=== PATIENT | female | born 1950 | race Caucasian/White ===

== ENCOUNTER 2017-04-26 11:40 | Inpatient (IN) ==
[2017-04-26] MEDS ORDERED: Ipratropium/Albuterol Neb 3 ML IH ONE (11:58)
[2017-04-26] MEDS ORDERED: methylPREDNISolone 125 MG/2 ML VIAL IVP ONE (11:58)
--- NOTE | 2017-04-26 12:40 | Emergency Department Note ---
Disposition Clinical Impression: COPD exacerbation Chest pain Qualifiers: Chest pain type: unspecified Qualified Code(s): R07.9 - Chest pain, unspecified Disposition: Admitted As Inpatient Condition: Good Chest Pain HPI - General Chief Complaint: ED Chest Pain Stated Complaint: Chest pain Time Seen by Provider: 04/26/17 11:48 Source: patient Mode of arrival: private vehicle Limitations: no limitations Vital Signs Reviewed: Yes Nursing Notes Reviewed: Yes - History of Present Illness HPI Narrative: 67-year-old female history of COPD on continuous oxygen supplementation at 2-1/ 2 L who presents to the ER with a chief complaint of shortness of breath and chest pain. Patient states she has had intermittent symptoms for the last 3 days. States she has a sharp pain sometimes on her right and sometimes on her left without radiation. States that it will happen a couple times a day. She reports she has had a cough during this time. She was recently hospitalized 1 month ago for complications from her COPD. Reports she was on steroids and antibiotics in the hospital. Denies any prior history of cardiac disease. No other complaints. Pt complaint: chest pain, other (Dyspnea) Onset (ago): day(s) Duration: intermittent Onset: during rest Pain Location: substernal Severity: severe Severity scale (1-10): 9 Quality: sharp Pain Radiation: none Improves with: nothing Worsens with: nothing Treatments prior to arrival chest pain: none - Related Data On Oral Contraceptives: No Home Medications Medication Instructions Recorded Confirmed Aspirin Enteric Coated [Aspirin EC] 81 mg PO DAILY 12/22/14 04/26/17 Cholecalciferol (Vitamin D3) 1,000 unit PO DAILY 12/22/14 04/26/17 [Vitamin D] ALPRAZolam [Xanax 0.5 MG Tablet] 0.5 mg PO BID 04/05/17 04/26/17 Albuterol Sulfate [Albuterol 1 - 2 puff IH QID PRN 04/26/17 04/26/17 Inhaler] Multivitamin [One Daily Essential] 1 tab PO DAILY 04/26/17 04/26/17 Previous Rx's Medication Instructions Recorded Hydrocodone/Acetaminophen [[place] 1 tab PO Q6H PRN #4 tab 12/22/14 5-325 Tablet] Allergies Allergy/AdvReac Type Severity Reaction Status Date / Time No Known Allergies Allergy Verified 04/26/17 11:45 All systems ED: reviewed and negative except as stated. Constitutional: Denies: fever Cardiovascular: Reports: chest pain Respiratory: Reports: cough, dyspnea Gastrointestinal: Reports: abdominal pain (Suprapubic), nausea. Denies: vomiting, diarrhea Genitourinary: Denies: dysuria, hematuria Chest Pain PMH - Past Medical History Medical history: Reports: COPD Surgical history: Reports: no surgical history, , hysterectomy Psychiatric history: Reports: no psych history - Social History Smoking Status: Current every day smoker Alcohol use: Reports: none Drug use: Reports: none Physical Exam - General Limitations: no limitations General appearance: alert, in no apparent distress - Head Head exam: atraumatic, normocephalic - Eye Eye exam: Present: normal appearance - ENT ENT exam: normal exam - Neck Neck exam: Present: normal inspection - Chest Chest inspection: Present: normal inspection, symmetric chest wall rise - Respiratory Respiratory exam: Present: other (Course breath sounds bilaterally) - Cardiovascular Cardiovascular exam: Present: regular rate, normal rhythm, normal heart sounds - Abdominal Exam Abdominal exam: Present: soft, Non-Tender. Absent: tenderness - Extremities Exam Extremities exam: Present: normal inspection, full ROM - Expanded Upper Extremity Exam Shoulder exam: Present: normal inspection, full ROM Arm exam: Present: normal inspection, full ROM Elbow exam: Present: normal inspection, full ROM Forearm/Wrist exam: Present: normal inspection, full ROM Hand exam: Present: normal inspection, full ROM - Expanded Lower Extremity Exam Hip/Pelvis exam: Present: normal inspection, full ROM Upper leg exam: Present: normal inspection, full ROM Knee exam: Present: normal inspection, full ROM Lower leg exam: Present: normal inspection, full ROM Ankle exam: Present: normal inspection, full ROM Foot/toe exam: Present: normal inspection, full ROM - Skin Skin exam: Present: warm, dry, intact Course Course Narrative: Patient seen and examined. Vital signs reviewed. We will obtain EKG, chest x- ray as well as labs including troponin. Patient given a breathing treatment and steroids here. - Reevaluation(s) Reevaluation #1: Discussed results of imaging and labs with the patient. She is agreeable with being admitted. Vital Signs Temperature 98.0 F 04/26/17 11:42 Pulse Rate 79 04/26/17 11:42 Respiratory Rate 20 04/26/17 11:42 Blood Pressure 121/78 04/26/17 11:42 O2 Sat by Pulse Oximetry 96 04/26/17 11:42 Temperature 98.0 F 04/26/17 11:42 Pulse Rate 57 04/26/17 15:54 Respiratory Rate 16 04/26/17 16:54 Blood Pressure 116/68 04/26/17 16:54 O2 Sat by Pulse Oximetry 96 04/26/17 15:54 Oxygen Delivery Oxygen Delivery Nasal Cannula Chest Pain - MDM Narrative Medical decision making narrative: 67-year-old female presents to the ER due to shortness of breath and chest pain for 3 days. She is cachectic in appearance here. Slight increase in her by her oxygen supplementation requirement. EKG without ischemic findings. Chest x -ray unremarkable. Labs reviewed. Patient given DuoNeb and steroids as well as Levaquin and admitted for COPD exacerbation as well as chest pain. - Lab Data Lab results reviewed: Yes I reviewed the patient's lab results. Result diagrams: 04/26/17 13:08 04/26/17 13:08 Lab Results 04/26/17 04/26/17 04/26/17 Range/Units 13:00 13:08 13:08 WBC 3.3 L (4.3-11.1) K/mcL RBC 5.11 H (3.82-4.97) M/mcL Hgb 16.4 H (11.5-15.4) g/dL Hct 48.3 H (35.3-44.9) % MCV 94.5 (83.0-100.0) fL MCH 32.1 (28.0-33.3) pg MCHC 34.0 (31.6-35.5) g/dL RDW 12.4 (11.5-14.5) % Plt Count 147 (140-400) K/mcL MPV 11.0 (9.4-12.4) fL Immature Gran % 0.3 (0-4) % Seg Neutrophils % 69.1 % Lymphocytes % 21.6 % Monocytes % 8.7 % Eosinophils % 0.0 % Basophils % 0.3 % Neutrophils # 2.3 (1.6-8.9) K/mcL Lymphocytes # 0.7 (0.6-4.6) K/mcL Monocytes # 0.3 (0.0-1.3) K/mcL Eosinophils # 0.0 (0.0-0.6) K/mcL Basophils # 0.0 (0.0-0.2) K/mcL Sodium (136-145) mEq/L Potassium (3.5-5.1) mEq/L Chloride (98-107) mEq/L Carbon Dioxide (23-29) mEq/L BUN (8-23) mg/dL Creatinine (0.60-1.20) mg/dL Est GFR ( Amer) (> 60) Est GFR (Non-Af Amer) (> 60) BUN/Creatinine Ratio (6-26) Glucose (70-105) mg/dL Calculated Osmolality (280-300) Calcium (8.6-10.3) mg/dL Total Bilirubin (0.3-1.0) mg/dL Direct Bilirubin (0.0-0.2) mg/dL Indirect Bilirubin (0.0-1.2) mg/dL AST (13-39) Units/L ALT (7-52) Units/L Alkaline Phosphatase (34-104) Units/L Troponin I (< 0.04) ng/mL B-Natriuretic Peptide 22 (Less than 100) pg/mL Serum Total Protein (6.4-8.9) g/dL Albumin (3.5-5.7) g/dL Globulin (2.4-3.5) g/dL Albumin/Globulin Ratio (1.1-2.2) Urine Color Dark Yellow (Yellow) Urine Clarity Cloudy A (Clear) Urine pH 5.5 (5.0-8.0) pH Units Ur Specific [place] > 1.030 H (1.010-1.025) Urine Protein 30 H (Neg-Trace) mg/dL Urine Glucose (UA) Normal (Normal) mg/dL Urine Ketones Trace H (Negative) mg/dL Urine Blood Negative (Negative) Urine Nitrite Negative (Negative) Urine Bilirubin Small H (Negative) Urine Urobilinogen Normal (Normal) mg/dL Ur Leukocyte Esterase Negative (Negative) Urine Microscopic RBC 0-3 (0-3) per hpf Urine Microscopic WBC 5-15 H (0-3) per hpf Ur Squamous Epith Cells Many H (None-Few) per lpf Urine Bacteria None Seen (None-Few) per hpf Ur Culture Indicated? NO (NO) 04/26/17 04/26/17 Range/Units 13:08 13:08 WBC (4.3-11.1) K/mcL RBC (3.82-4.97) M/mcL Hgb (11.5-15.4) g/dL Hct (35.3-44.9) % MCV (83.0-100.0) fL MCH (28.0-33.3) pg MCHC (31.6-35.5) g/dL RDW (11.5-14.5) % Plt Count (140-400) K/mcL MPV (9.4-12.4) fL Immature Gran % (0-4) % Seg Neutrophils % % Lymphocytes % % Monocytes % % Eosinophils % % Basophils % % Neutrophils # (1.6-8.9) K/mcL Lymphocytes # (0.6-4.6) K/mcL Monocytes # (0.0-1.3) K/mcL Eosinophils # (0.0-0.6) K/mcL Basophils # (0.0-0.2) K/mcL Sodium 130 L (136-145) mEq/L Potassium 4.7 (3.5-5.1) mEq/L Chloride 92 L (98-107) mEq/L Carbon Dioxide 27 (23-29) mEq/L BUN 20 (8-23) mg/dL Creatinine 0.85 (0.60-1.20) mg/dL Est GFR ( Amer) > 60 (> 60) Est GFR (Non-Af Amer) > 60 (> 60) BUN/Creatinine Ratio 24 (6-26) Glucose 88 (70-105) mg/dL Calculated Osmolality 272 L (280-300) Calcium 10.0 (8.6-10.3) mg/dL Total Bilirubin 0.5 (0.3-1.0) mg/dL Direct Bilirubin 0.1 (0.0-0.2) mg/dL Indirect Bilirubin 0.4 (0.0-1.2) mg/dL AST 86 H (13-39) Units/L ALT 61 H (7-52) Units/L Alkaline Phosphatase 80 (34-104) Units/L Troponin I < 0.03 (< 0.04) ng/mL B-Natriuretic Peptide (Less than 100) pg/mL Serum Total Protein 8.0 (6.4-8.9) g/dL Albumin 4.5 (3.5-5.7) g/dL Globulin 3.5 (2.4-3.5) g/dL Albumin/Globulin Ratio 1.3 (1.1-2.2) Urine Color (Yellow) Urine Clarity (Clear) Urine pH (5.0-8.0) pH Units Ur Specific [place] (1.010-1.025) Urine Protein (Neg-Trace) mg/dL Urine Glucose (UA) (Normal) mg/dL Urine Ketones (Negative) mg/dL Urine Blood (Negative) Urine Nitrite (Negative) Urine Bilirubin (Negative) Urine Urobilinogen (Normal) mg/dL Ur Leukocyte Esterase (Negative) Urine Microscopic RBC (0-3) per hpf Urine Microscopic WBC (0-3) per hpf Ur Squamous Epith Cells (None-Few) per lpf Urine Bacteria (None-Few) per hpf Ur Culture Indicated? (NO) - Radiology Data Radiology results reviewed: Yes I reviewed the patient's radiology results. Chest X-Ray 04/26/17 11:58 IMPRESSION: No acute process. D/ / 04/26/2017 12:26:33 William Nathan MD / Ivis Jara Interpreting Provider: William Nathan MD - EKG Data EKG attestation: Yes I reviewed and interpreted this EKG. EKG results narrative: EKG demonstrates sinus rhythm with rate of 76 bpm. Normal axis. Short NV interval of 104. Other intervals normal. Normal R-wave progression. There are prominent P waves suggestive of right atrial enlargement. No gross ST elevations or depressions. No acute ischemic findings. No significant changes from previous EKG dated 04/05/17. Heart Score - Score History: Slightly Suspicious EKG: Normal Age: Greater than 65 Risk Factors: 1-2 risk factors Troponin: Less than normal limit HEART Score Total: 3 S.B.A.R. - S.B.A.R. Situation: Demographics, MOA Background: Presenting Complaint, Relevant PMH, Meds, & Allergies Assessment: Course and respsone to treatment, Exam Concerns, Patient/Family Expectation, Pertinant Lab Results Recommendation: Barrier(s) to disposition, Recommendation based on pending studies, treatments, or consults S.B.A.R. Report Given to: Dr. Carolina Attestation Statement - Attestation Attestation: I, Gomez Kong DO, examined this patient [id number] and my medical decision-making was reviewed with Dr. Domo Wright, Resident Physician. I agree with the documented findings, disposition and treatment plan as described except to the extent set forth below. Please see my progress notes for details. 67-year-old female presents emergency room for evaluation of chest tightness, shortness of breath, weight loss. Patient denies any recent illnesses. She has intermittent abdominal discomfort and nausea and vomiting. Vision denies any trauma or injury. On physical exam she is a very thin cachectic appearing female. Vital signs reviewed and she was borderline hypotensive. She has required more oxygen in the emergency room and she typically uses at home. She is normal lung sounds bilaterally with regular heart. Abdomen is soft nontender nondistended with no guarding or rigidity and no peritoneal exam this. Patient has no signs of pitting edema or asymmetry to the extremities on exam. Patient will be resuscitated with fluids. Treatments and steroids here. Chest x-ray and laboratory workup will be completed. Facial muscles and admission for COPD exacerbation versus cardiac related disease. Patient understands this is covered with the plan. Treatments, steroids, aspirin will be given here in the emergency room prior to going up to the floor. Imaging modality EKG and labs otherwise unremarkable for acute pathology this point. Symptomatic treatment will be continued as admission process is completed. See detailed documentation of the physical exam , medical intervention, medical decision-making and disposition of the resident physician's note. 1500 Patient has stable hemoglobin. Hyponatremia is noted here today with unknown etiology. Patient does not have any known cancer or other wasting related disease. Chest x-ray is otherwise stable. Patient will be admitted for COPD exacerbation. Urinalysis is negative for acute infection.
[2017-04-26 13:11] LABS: Bilirubin,Urine Small (Negative); Blood,Urine Negative (Negative); Clarity,Urine Cloudy (Clear); Color,Urine Dark Yellow (Yellow); Glucose,Urine (UA) Normal (Normal); Ketones,Urine Trace mg/dL (Negative); Leukocyte Esterase,Urine Negative (Negative); Nitrite,Urine Negative (Negative); PH,Urine 5.5 pH Units (5.0-8.0); Protein,Urine 30 mg/dL (Neg-Trace); Specific Gravity,Urine > 1.030 (1.010-1.025); Urobilinogen,Urine Normal (Normal)
[2017-04-26 13:13] LABS: Bacteria,Urine None Seen per hpf (None-Few); RBC,Urine 0-3 per hpf (0-3); Squamous Epithelial Cell,Urine Many per lpf (None-Few)
[2017-04-26 13:21] LABS: Basophils % 0.3 %; Hematocrit 48.3 % (35.3-44.9); Hemoglobin 16.4 g/dL (11.5-15.4); Immature Granulocytes % 0.3 % (0-4); Lymphocytes # 0.7 K/mcL (0.6-4.6); Lymphocytes % 21.6 %; Mean Corpuscular Hemoglobin 32.1 pg (28.0-33.3); Mean Corpuscular Volume 94.5 fL (83.0-100.0); Monocytes # 0.3 K/mcL (0.0-1.3); Monocytes % 8.7 %; Neutrophils # 2.3 K/mcL (1.6-8.9); Platelet Count 147 K/mcL (140-400); Red Blood Count 5.11 M/mcL (3.82-4.97); Red Cell Distribution Width 12.4 % (11.5-14.5); Segmented Neutrophils % 69.1 %
[2017-04-26 13:33] LABS: Alanine Aminotransferase 61 Units/L (7-52); Albumin 4.5 g/dL (3.5-5.7); Albumin/Globulin Ratio 1.3 (1.1-2.2); Alkaline Phosphatase 80 Units/L (34-104); Aspartate Amino Transferase 86 Units/L (13-39); BUN/Creatinine Ratio 24 (6-26); Bilirubin,Direct 0.1 mg/dL (0.0-0.2); Bilirubin,Indirect 0.4 mg/dL (0.0-1.2); Bilirubin,Total 0.5 mg/dL (0.3-1.0); Blood Urea Nitrogen 20 mg/dL (8-23); Carbon Dioxide 27 mEq/L (23-29); Chloride 92 mEq/L (98-107); Globulin 3.5 g/dL (2.4-3.5); Glucose 88 mg/dL (70-105); Osmolality,Calculated 272 (280-300); Potassium 4.7 mEq/L (3.5-5.1); Sodium 130 mEq/L (136-145); eGFR For African Americans > 60 (> 60); eGFR For Non-African Americans > 60 (> 60)
[2017-04-26] MEDS ORDERED: Aspirin 81 MG TAB.CHEW PO ONE (13:39)
[2017-04-26] MEDS ORDERED: Ondansetron 4 MG/2 ML VIAL IVP ONE (13:39)
[2017-04-26] MEDS ORDERED: 0.9 % Sodium Chloride 1,000 ML IVC ONE (13:39)
[2017-04-26] MEDS ORDERED: Levofloxacin 750 MG/150 ML 750 MG/150 ML BAG IVPB ONE (15:16)
[2017-04-26] MEDS: 0.9 % Sodium Chloride 1,000 ML IVC SCH (16:03)
[2017-04-26] MEDS ORDERED: Naloxone 0.4 MG/ML INJ IVP PRN (18:11)
[2017-04-26] MEDS ORDERED: Acetaminophen 325 MG TABLET PO PRN (18:11)
--- NOTE | 2017-04-26 18:29 | Internal Med History&Physical ---
Date of Encounter: 04/26/17 Time of Encounter: 17:30 Assessment and Plan (1) Acute exacerbation of chronic obstructive airways disease Current visit: Yes Status: Acute Acute exacerbation of COPD complicated by influenza. Pt. reports three days of increasing SOB/dyspnea. Prednisone 40 mg PO daily. Supplemental O2 w/titration and SpO2 monitoring. DuoNebs Q6 scheduled. IVPB Azithromycin for bronchitis coverage. Monitor pt. and VS closely. Pt. discussed w/Dr. Carolina who is in agreement w/plan of care. Pt. is high risk for further morbidity and complications based on current dx of influenza A, bronchitis, COPD exacerbation , leukopenia, sx, and risk factors. Inpatient. (2) Influenza A Current visit: Yes Status: Acute Acute influenza A dx complicated by COPD exacerbation and bronchitis. Tamiflu 75 mg BID x5 days. Supportive care. IV fluids. (3) Bronchitis Current visit: Yes Status: Acute Acute bronchitis d/t current acute exacerbation of COPD. IVPB azithromycin 500 mg daily for infection coverage. Monitor pt. and f/u labs regarding current leukopenia and for signs of increasing infection, cardiac, and/or respiratory distress. (4) Chest pain Current visit: Yes Status: Acute Acute chest pain that pt. reports as left-sided. Pt. denies cardiac hx. Initial troponin <0.03. Will trend x2. Continuous cardiac telemetry. Aspirin. Echocardiogram ordered. Will consult cardiology if troponin and/or echocardiogram abnormal. EKG and old EKG ordered. Qualifiers: Chest pain type: unspecified Qualified Code(s): R07.9 - Chest pain, unspecified (5) Leukopenia Current visit: Yes Status: Acute Acute leukopenia w/WBC of 3.3 on admission. Pt. currently in COPD exacerbation w /bronchitis. IVPB azithromycin 500 mg daily for infection coverage. IV 0.9 NS 1L bolus followed by 100 mL/HR. Pt. does not currently meet sepsis criteria but will be monitored closely with f/u labs. Qualifiers: Leukopenia type: unspecified Qualified Code(s): D72.819 - Decreased white blood cell count, unspecified (6) Hyponatremia Current visit: Yes Status: Acute Acute hyponatermia and hypochloremia. Sodium 130 and chloride 92 on admission. Pt. Received 1L bolus in ED to be followed by 100 mL/HR 0.9 NS. Monitor f/u labs and electrolyte status. (7) Weight loss Current visit: Yes Status: Chronic Chronic weight loss. Pt. reports 10-15 pound weight loss over the past 2-3 years w/increasing weakness. States she has had testing done but no abnormal results. Also reports RLQ pain. CT of abdomen/pelvis and chest ordered w/ contrast to assess for malignancy. Nutrition consult ordered for PO supplementation. (8) DVT prophylaxis Current visit: Yes Status: Acute Heparin 5,000 units SQ Q12 for DVT prophylaxis. Monitor pt. for signs of bleeding. Internal Medicine - H&P: HPI Chief complaint: Chest pain/Cough/SOB Admitted From: Emergency Dept Plans for Post Hospital Care: Home History of present illness: Ms. Dia is a 67 year old female with medical hx of COPD presents from the ED with chief complaint of shortness of breath, chest pain, body aches, nausea, fever 102F at home diarrhea, and lack of appetite for the past 3 days. Reports she was hospitalized approximately 1 month ago for complications of COPD. Denies any previous cardiac history. Patient reports generalized weakness as well but denies recent illness, chills, headache, changes in vision, palpitations, vomiting, unusual bleeding, numbness, tingling, dizziness, lightheadedness, presyncope, or syncope. Past Med Surg Social Fam HX - Past Medical History Source: patient, old records reviewed Medical history: COPD Psychiatric history: no psych history - Past Surgical History Surgical History: no surgical history, , carotid endarterectomy (Right) , hysterectomy (Total), other (Left leg bypass, brain aneurysm surgery) - Social History Smoking Status: Former smoker Packs per day: 1.5 PPD - Reports quitting in March 2017 Smokeless Tobacco Status: No Alcohol use: none Drug use: none Occupational status: retired Current living situation: Home Activity Level: Independent ambulation Recent Out of Country Travel Within the Last 8 Weeks: No Exposure or Possible Exposure to Illness During Travel: No - Family History Mother Adopted: No Race: Family Member Ethnicity: Non- Living Status: Age at : 83 Cause of : Aneurysm Hx Family Cardiac Disorders: Yes (Aneurysm, TIAs) Father History Unknown: Yes Race: Family Member Ethnicity: Non- Brother Race: Family Member Ethnicity: Non- Living Status: Age at : 50 Cause of : Lung cancer Hx Family Cardiac Disorders: Yes (Stroke) Hx Family Cancer: Yes (Lung) Sister Race: Family Member Ethnicity: Non- Living Status: Age at : 68 Cause of : COPD Hx Family Cardiac Disorders: Yes ([place]) Hx Family Respiratory Disorders: Yes (COPD) Internal Medicine - H&P: Meds Aspirin Enteric Coated [Aspirin EC] 81 mg PO DAILY 12/22/14 [History] Cholecalciferol (Vitamin D3) [Vitamin D] 1,000 unit PO DAILY 12/22/14 [History] Hydrocodone/Acetaminophen [[place] 5-325 Tablet] 1 tab PO Q6H PRN #4 tab 12/22/14 [Rx] ALPRAZolam [Xanax 0.5 MG Tablet] 0.5 mg PO BID 04/05/17 [History] Albuterol Sulfate [Albuterol Inhaler] 1 - 2 puff IH QID PRN 04/26/17 [History] Multivitamin [One Daily Essential] 1 tab PO DAILY 04/26/17 [History] 3 Allergy/AdvReac Type Severity Reaction Status Date / Time acetaminophen [From Percocet] AdvReac Nausea Verified 04/26/17 17:56 Oxycodone [From Percocet] AdvReac Nausea Verified 04/26/17 17:56 All Systems PM: A 10-system review of systems was performed and is negative for pertinent findings except as documented above in the HPI. - Constitutional Constitutional: as per HPI, fever(s) (102F), weight loss (10-15 pounds over 2-3 years), no chills, no night sweats - EENT Eyes: no change in vision, no discharge, no pain, no photophobia Ears: no ear discharge, no ear pain, no tinnitus Nose, mouth and throat: no dysphagia, no nasal discharge, no neck pain, no sore throat - Breasts Breasts: as per HPI - Cardiovascular Cardiovascular ROS IM: as per HPI, chest pain, dyspnea, dyspnea on exertion, no diaphoresis, no lightheadedness, no palpitations, no syncope - Respiratory Respiratory: as per HPI, cough, dyspnea on exertion, no dyspnea, no wheezing, no excessive phlegm production - Gastrointestinal Gastrointestinal: as per HPI, diarrhea, nausea, no abdominal pain, no hematemesis, no hematochezia, no melena, no vomiting - Genitourinary Genitourinary: no change in urinary stream, no dysuria, no flank pain, no hematuria Menstruation: as per HPI, post hysterectomy - Musculoskeletal Musculoskeletal ROS IM: no numbness, no tingling - Integumentary Integumentary IM: no rash, no unusual bruising - Neurological Neurological ROS: no confusion, no convulsions, no focal weakness, no numbness, no tingling, no tremor(s) - Psychiatric Psychiatric: as per HPI - Endocrine Endocrine IM: as per HPI - Hematologic/Lymphatic Hematologic/Lymphatic: no easy bruising - Allergic/Immunologic Allergic/Immunologic: as per HPI - Constitutional Vitals: Temp Pulse Resp BP Pulse Ox 97.6 F 56 15 111/68 90 04/26/17 17:36 04/26/17 17:36 04/26/17 17:36 04/26/17 17:36 04/26/17 17:36 General appearance: Present: cooperative, mild distress, A&O X 3, pleasant, underweight, answers questions appropriately - Head Head exam: Present: atraumatic, normocephalic - Eye Eye exam: Present: PERRL, conjuntiva pink, sclera anicteric Pupils: Present: PERRL - ENT ENT exam: Present: normal exam, normal external ear exam - Neck Neck exam general surgery: Present: normal inspection - Respiratory Respiratory exam: Present: decreased breath sounds - Cardiovascular Cardiovascular exam: Present: RRR, +S1, +S2. Absent: diastolic murmur, gallop, rubs, systolic murmur - GI/Abdominal GI/Abdominal exam: Present: normal bowel sounds, soft, no peritoneal signs. Absent: distended, tenderness - Rectal Rectal exam: Present: deferred - Additional comments: exam deferred. - Extremities Exam Extremities exam: Present: warm, radial pulses palpable and symmetrical. Absent : calf tenderness, cyanotic, pedal edema - Back Exam Back exam: Present: normal inspection - Neurological Exam Neurological exam: Present: CN II-XII intact, oriented X3, no focal deficits. Absent: pronater drift, facial droop, speech deficit - Psychiatric Psychiatric exam: Present: normal affect, normal mood - Skin Skin exam: Present: dry, intact Internal Med - H&P Results - Labs CBC & Chem 7: 04/26/17 13:08 04/26/17 13:08 - Diagnostic Studies Chest x-ray Additional comments: Impressions Chest X-Ray 04/26/17 11:58 IMPRESSION: No acute process. D/ / 04/26/2017 12:26:33 William Nathan MD / Ivis Jara Interpreting Provider: William Nathan MD
--- NOTE | 2017-04-26 18:49 | Event Note ---
Date of Encounter: 04/26/17 Time of Encounter: 18:49 Patient seen and examined with nurse practitioner agree with assessment and plan
[2017-04-26] MEDS: *HR* Promethazine 25 MG/ML VIAL IVP PRN (19:50)
[2017-04-26] MEDS: Azithromycin 500 MG in D5% in Water 250 ML IVPB SCH (19:51)
[2017-04-26] MEDS: *HR* HYDROcodone/Acet 5/325 mg TABLET PO PRN (19:51)
[2017-04-26] MEDS: Ipratropium/Albuterol Neb 3 ML IH SCH (23:01)
[2017-04-27] MEDS ORDERED: MethylPREDNISolone 40 MG/ML VIAL IVP SCH
[2017-04-27] MEDS: ALPRAZolam 0.5 MG TABLET PO SCH ×3 (00:10→22:50)
[2017-04-27] MEDS: *HR* Promethazine 25 MG/ML VIAL IVP PRN ×4 (01:53→21:25)
[2017-04-27 02:10] LABS: Hematocrit 35.8 % (35.3-44.9); Hemoglobin 12.1 g/dL (11.5-15.4); Immature Granulocytes % 1.3 % (0-4); Lymphocytes # 0.2 K/mcL (0.6-4.6); Lymphocytes % 27.3 %; Mean Corpuscular HGB Conc 33.8 g/dL (31.6-35.5); Mean Corpuscular Hemoglobin 31.8 pg (28.0-33.3); Mean Corpuscular Volume 94.2 fL (83.0-100.0); Monocytes # 0.1 K/mcL (0.0-1.3); Monocytes % 11.7 %; Neutrophils # 0.5 K/mcL (1.6-8.9); Platelet Count 109 K/mcL (140-400); Segmented Neutrophils % 59.7 %
[2017-04-27 02:27] LABS: Alanine Aminotransferase 37 Units/L (7-52); Albumin 3.2 g/dL (3.5-5.7); Albumin/Globulin Ratio 1.3 (1.1-2.2); Alkaline Phosphatase 54 Units/L (34-104); Aspartate Amino Transferase 49 Units/L (13-39); BUN/Creatinine Ratio 21 (6-26); Bilirubin,Total 0.3 mg/dL (0.3-1.0); Blood Urea Nitrogen 13 mg/dL (8-23); Calcium 8.2 mg/dL (8.6-10.3); Carbon Dioxide 26 mEq/L (23-29); Chloride 96 mEq/L (98-107); Chol/HDL Ratio 2.9 (0-4.9); Cholesterol 139 mg/dL (< 200); Globulin 2.5 g/dL (2.4-3.5); Glucose 191 mg/dL (70-105); HDL Cholesterol 48 mg/dL (40-59); LDL Cholesterol,Calculated 78 mg/dL (0-99); Magnesium 1.4 mg/dL (1.6-2.6); Osmolality,Calculated 277 (280-300); Potassium 4.6 mEq/L (3.5-5.1); Sodium 131 mEq/L (136-145); Total Protein 5.7 g/dL (6.4-8.9); Triglycerides 67 mg/dL (< 150); eGFR For African Americans > 60 (> 60); eGFR For Non-African Americans > 60 (> 60)
[2017-04-27 02:28] LABS: Hemoglobin A1C 5.7 %
[2017-04-27 02:52] LABS: Hematocrit 36.3 % (35.3-44.9); Hemoglobin 12.2 g/dL (11.5-15.4); Lymphocytes # 0.2 K/mcL (0.6-4.6); Lymphocytes % 33.8 %; Mean Corpuscular HGB Conc 33.6 g/dL (31.6-35.5); Mean Corpuscular Hemoglobin 31.6 pg (28.0-33.3); Mean Platelet Volume 10.9 fL (9.4-12.4); Monocytes # 0.1 K/mcL (0.0-1.3); Monocytes % 9.9 %; Neutrophils # 0.4 K/mcL (1.6-8.9); Nucleated Red Blood Cells 5.6 /100 WBC (0); Platelet Count 106 K/mcL (140-400); Red Blood Count 3.86 M/mcL (3.82-4.97); Segmented Neutrophils % 56.3 %
[2017-04-27 03:01] LABS: Platelet Estimate Slight Decrease (Normal)
[2017-04-27 03:05] LABS: Platelet Estimate Slight Decrease (Normal)
[2017-04-27] MEDS: Ipratropium/Albuterol Neb 3 ML IH SCH ×4 (03:34→22:06)
--- NOTE | 2017-04-27 03:36 | Event Note ---
Date of Encounter: 04/27/17 Time of Encounter: 03:33 Called by RN with critical lab - WBC 0.7. ANC calculated at 280. Patient with influenza A and COPD exacerbation. Platelets and Hgb also decreased from admission labs. Paninfluenza possibly related to influenza A infection. Patient not on any meds associated with neutropenia. Will consult oncology for assistance in AM.
[2017-04-27] MEDS: *HR* Heparin 5,000 UNIT/ML VIAL SQ SCH ×2 (04:45→16:56)
[2017-04-27] MEDS: 0.9 % Sodium Chloride 1,000 ML IVC SCH ×2 (04:50→15:03)
[2017-04-27] MEDS ORDERED: predniSONE 20 MG TABLET PO SCH (09:00)
--- NOTE | 2017-04-27 10:44 | Internal Med Progress Note ---
Date of Encounter: 04/27/17 Time of Encounter: 10:00 - Assessment and plan (1) Acute exacerbation of chronic obstructive airways disease Current Visit: Yes Status: Acute Assessment and plan: She reports 3-4 days of increasing shortness of breath, dyspnea, cough. Acute exacerbation complicated by influenza A. The patient is requiring supplemental oxygen. Wheezing heard in posterior lung champagne, she is in no obvious distress. Continue Tamiflu Continue IV Zithromax for COPD O2 as needed to maintain sats greater than 92% Due to nebs every 6. Prednisone 40 mg by mouth daily. Monitor vital signs with pulse ox. (2) Weight loss Current Visit: Yes Status: Chronic Assessment and plan: Ten to 15 pound weight loss over the last 2-3 years with increasing weight loss. Has been seen prior with no diagnosis. Nutrition consult Daily weights Encourage po intake (3) Chest pain Current Visit: Yes Status: Acute Assessment and plan: Patient reports 3-4 day history of left chest pain without radiation. She reports nausea, as well as headache. She has nonproductive cough. No increase over her normal baseline shortness of breath. The pain is not reproducible. Troponins are negative. Chest x-ray is negative. Chest CT indicative of possible bronchiolitis or aspiration. Chronic emphysema and chronic bronchitis noted. Echo 1 year ago with preserved EF and no significant valvular dysfunction. Echo is in progress and room at this time. EKG sinus rhythm without any ST changes, rate 76. Continue telemetry Continue current pain control regimen Echo pending Monitor labs and vitals. Qualifiers: Chest pain type: unspecified Qualified Code(s): R07.9 - Chest pain, unspecified (4) Bronchitis Current Visit: Yes Status: Acute (5) Hyponatremia Current Visit: Yes Status: Acute Assessment and plan: Improving. Continue to monitor and IVF hydration. (6) Leukopenia Current Visit: Yes Status: Acute Assessment and plan: White count was 0.7 this morning. Platelets also decreased overnight. Patient with influenza A, as well as COPD exacerbation/bronchitis, could be causing suppression. Oncology has been consulted. Qualifiers: Leukopenia type: unspecified Qualified Code(s): D72.819 - Decreased white blood cell count, unspecified (7) Influenza A Current Visit: Yes Status: Acute Assessment and plan: Positive influenza with a swab. Patient also admitted for COPD exacerbation and bronchitis. Continue Tamiflu twice a day for 5 days and continue supportive care. Continue IV fluids, (8) DVT prophylaxis Current Visit: Yes Status: Acute - Time Spent With Patient less than 15 minutes - Subjective Interval history: Patient was seen and assessed at bedside at 10 AM. She is alert and awake, oriented. She appears to be somewhat of a poor historian. Chest pain is in left chest without radiation. She reports nausea and a global headache. Onset of chest pain 3-4 days ago. She denies any increase over her normal baseline shortness of breath due to COPD. She has a dry infrequent nonproductive cough. She denies any abdominal pain, vomiting or diarrhea. No dizziness. She denies any chills. - Constitutional Vitals: Temp Pulse Resp BP Pulse Ox 97.3 F L 55 17 100/65 97 04/27/17 09:12 04/27/17 09:12 04/27/17 09:12 04/27/17 09:12 04/27/17 09:12 General appearance: Present: cachectic, cooperative, mild distress, A&O X 3, pleasant, no acute distress, underweight, answers questions appropriately - Head Head exam: Present: atraumatic, normal inspection, normocephalic - Eye Eye exam: Present: normal appearance, conjuntiva pink, sclera anicteric - Neck Neck exam general surgery: Present: supple, trachea midline. Absent: lymphadenopathy, tenderness - Respiratory Respiratory exam: Present: decreased breath sounds, wheezes. Absent: accessory muscle use, chest wall tenderness, CTAB, rales, respiratory distress, rhonchi - Cardiovascular Cardiovascular exam: Present: RRR, +S1, +S2. Absent: diastolic murmur, gallop, rubs, systolic murmur - GI/Abdominal GI/Abdominal exam: Present: normal bowel sounds, soft. Absent: distended, hepatomegaly, tenderness - Extremities Exam Extremities exam: Present: normal capillary refill, warm, radial pulses palpable and symmetrical. Absent: calf tenderness, cyanotic, pedal edema, tenderness - Neurological Exam Neurological exam: Present: alert, oriented X3, no focal deficits. Absent: altered, facial droop, speech deficit - Skin Skin exam: Present: dry, intact, normal color, warm. Absent: rash Internal Medicine: Result - Labs CBC & Chem 7: 04/27/17 02:40 04/27/17 01:50 Labs: Short CBC 04/27/17 04/27/17 Range/Units 01:50 02:40 WBC 0.8 L* D 0.7 L* (4.3-11.1) K/mcL Hgb 12.1 D 12.2 (11.5-15.4) g/dL Hct 35.8 36.3 (35.3-44.9) % Plt Count 109 L 106 L (140-400) K/mcL Neutrophils # 0.5 L 0.4 L (1.6-8.9) K/mcL BMP 04/27/17 01:50 Sodium 131 L Potassium 4.6 Chloride 96 L Carbon Dioxide 26 BUN 13 Creatinine 0.62 Glucose 191 H Calcium 8.2 L Cardiac Enzymes 04/26/17 04/27/17 Range/Units 19:44 01:50 Troponin I < 0.03 < 0.03 (< 0.04) ng/mL Liver Function 04/27/17 Range/Units 01:50 Total Bilirubin 0.3 (0.3-1.0) mg/dL AST 49 H (13-39) Units/L ALT 37 (7-52) Units/L Alkaline Phosphatase 54 (34-104) Units/L Albumin 3.2 L (3.5-5.7) g/dL - Impressions Impressions Abdomen/Pelvis CT 04/26/17 21:30 IMPRESSION: 1. No acute findings within the abdomen to explain the patient's recent weight loss. 2. Stable 1.5 cm right adrenal adenoma. 3. Moderately severe aortoiliac atherosclerotic disease. No aneurysm. D/ / 04/27/2017 07:29:14 Jonah Hogan MD / Ivis Jara Interpreting Provider: Jonah Hogan MD Chest CT 04/26/17 21:30 IMPRESSION: 1. No acute findings of the chest. 2. Emphysema and chronic bronchitis. 3. Minimal debris or mucus within some bilateral lower lobe small bronchi. Findings could represent sequela of bronchiolitis or aspiration. 4. Please see separate same day CT of the abdomen and pelvis. D/ / 04/27/2017 07:27:35 Nate Myers MD / Ivis Jara Interpreting Provider: Nate Myers MD Consult Discharge Plan - Plan Referrals: Colby Samuel, [Primary Care Provider] -
[2017-04-27] MEDS: predniSONE 20 MG TABLET PO SCH (11:08)
[2017-04-27] MEDS: Multivit/Ca/Min/Fe/FA 1 TAB TABLET PO SCH (11:09)
[2017-04-27] MEDS: Cholecalciferol (D-3) 1,000 UNIT TABLET PO SCH (11:09)
[2017-04-27] MEDS: *HR* HYDROcodone/Acet 5/325 mg TABLET PO PRN ×2 (11:09→16:57)
[2017-04-27] MEDS: Aspirin Enteric Coated 81 MG Tablet PO SCH (11:09)
[2017-04-27] MEDS: Azithromycin 500 MG in D5% in Water 250 ML IVPB SCH (16:53)
--- NOTE | 2017-04-27 19:16 | Oncology Inp Consult Note ---
Date of Encounter: 04/27/17 Time of Encounter: 19:12 Assessment and Plan (1) Thrombocytopenia Status: Acute Assessment and plan: It is acute. I anticipate it is part of the bicytopenia related to her acute viral syndrome. I dont believe it is medication related either to the oseltamivir or the azithromycin. Therefore, we can continue those for now. I anticipate that the bicytopenia will improve as her recovery from the viral syndrome improves. We will continue to monitor. (2) Neutropenia Status: Acute Assessment and plan: Significant. However, she is afebrile. NO indication for GCSF at this time. Qualifiers: Neutropenia type: due to infection Qualified Code(s): D70.3 - Neutropenia due to infection (3) Leukopenia Status: Acute Assessment and plan: as above. Qualifiers: Leukopenia type: neutropenia Neutropenia type: due to infection Qualified Code(s): D70.3 - Neutropenia due to infection (4) Influenza A Status: Acute Assessment and plan: Continue oseltamivir. - Data of Consult Requesting Physician: Neha Ross CNP Primary Care Provider: Colby Samuel DO - Consult Narrative Reason for consult: bicytopenia History of present illness: Ms. Dia is a 67 year old female with COPD and was recently discharged from the hospital about 2 weeks ago after pneumonia with Pseuomonas and H. influenza and was in [facility] until 5 days ago. Apparently, her had influenza. She started with HELMS, chest pain, and dry cough. She started to get fevers up to 102. The symptoms progressed and she was getting weaker and shaky and thus she came to the hospital last night. She was found to have influenza. She was started on oseltavimir and azithromycin. during the hospitalization, she developed an acute bicytopenia. We are consulted regarding the bicytopenia. Past Med Surg Social Fam HX - Past Medical History Medical history: COPD Psychiatric history: no psych history - Past Surgical History Surgical History: no surgical history, , carotid endarterectomy (Right) , hysterectomy (Total), other (Left leg bypass, brain aneurysm surgery) - Social History Smoking Status: Former smoker Packs per day: 1.5 PPD - Reports quitting in March 2017 Smokeless Tobacco Status: No Alcohol use: none Drug use: none - Family History Father History Unknown: Yes Race: Family Member Ethnicity: Non- Brother Race: Family Member Ethnicity: Non- Living Status: Age at : 50 Cause of : Lung cancer Hx Family Cardiac Disorders: Yes (Stroke) Hx Family Cancer: Yes (Lung) Sister Race: Family Member Ethnicity: Non- Living Status: Age at : 68 Cause of : COPD Hx Family Cardiac Disorders: Yes ([place]) Hx Family Respiratory Disorders: Yes (COPD) Mother Adopted: No Race: Family Member Ethnicity: Non- Living Status: Age at : 83 Cause of : Aneurysm Hx Family Cardiac Disorders: Yes (Aneurysm, TIAs) Medications and Allergies Aspirin Enteric Coated [Aspirin EC] 81 mg PO DAILY 12/22/14 [History] Cholecalciferol (Vitamin D3) [Vitamin D] 1,000 unit PO DAILY 12/22/14 [History] Hydrocodone/Acetaminophen [[place]ster 5-325 Tablet] 1 tab PO Q6H PRN #4 tab 12/22/14 [Rx] ALPRAZolam [Xanax 0.5 MG Tablet] 0.5 mg PO BID 04/05/17 [History] Albuterol Sulfate [Albuterol Inhaler] 1 - 2 puff IH QID PRN 04/26/17 [History] Multivitamin [One Daily Essential] 1 tab PO DAILY 04/26/17 [History] 3 Allergy/AdvReac Type Severity Reaction Status Date / Time acetaminophen [From Percocet] AdvReac Nausea Verified 04/26/17 17:56 Oxycodone [From Percocet] AdvReac Nausea Verified 04/26/17 17:56 Constitutional: Present: anorexia, fatigue, fever(s), weight loss Nose, mouth and throat: Present: headache(s) Cardiovascular: Present: chest pain, dyspnea on exertion Respiratory: Present: as per HPI, cough, dyspnea Gastrointestinal: Present: abdominal pain, nausea Additional comments: abdominal pain on the R side when she stands or walks for a long time. Musculoskeletal: Present: muscle weakness, stiffness Neurological: Present: tremor(s) Hematologic/Lymphatic: Absent: easy bleeding, easy bruising Oncology - Exam - Constitutional Vitals: Temp Pulse Resp BP Pulse Ox 97.6 F 61 16 92/48 94 04/27/17 19:05 04/27/17 19:05 04/27/17 19:05 04/27/17 19:05 04/27/17 19:05 General appearance: no febrile Exam: diaphoretic, cachectic - Eye Eye exam: Present: EOMI - Neck Neck exam: Absent: full ROM, lymphadenopathy - Respiratory Respiratory exam: Present: decreased breath sounds, wheezes - Cardiovascular Cardiovascular exam: Present: RRR - GI/Abdominal GI/Abdominal exam: Present: normal bowel sounds - Extremities Exam Extremities exam: Absent: joint swelling, pedal edema - Neurological Exam Neurological exam: Present: alert, oriented X3 Oncology - Results Labs: Short CBC 04/27/17 04/27/17 Range/Units 01:50 02:40 WBC 0.8 L* D 0.7 L* (4.3-11.1) K/mcL Hgb 12.1 D 12.2 (11.5-15.4) g/dL Hct 35.8 36.3 (35.3-44.9) % Plt Count 109 L 106 L (140-400) K/mcL Neutrophils # 0.5 L 0.4 L (1.6-8.9) K/mcL BMP 04/27/17 01:50 Sodium 131 L Potassium 4.6 Chloride 96 L Carbon Dioxide 26 BUN 13 Creatinine 0.62 Glucose 191 H Calcium 8.2 L Cardiac Enzymes 04/26/17 04/27/17 Range/Units 19:44 01:50 Troponin I < 0.03 < 0.03 (< 0.04) ng/mL Liver Function 04/27/17 Range/Units 01:50 Total Bilirubin 0.3 (0.3-1.0) mg/dL AST 49 H (13-39) Units/L ALT 37 (7-52) Units/L Alkaline Phosphatase 54 (34-104) Units/L Albumin 3.2 L (3.5-5.7) g/dL Consult Discharge Plan - Plan Referrals: Colby Samuel, [Primary Care Provider] -
[2017-04-27] MEDS: Oseltamivir Phosphate 30 MG CAPSULE PO SCH (21:25)
[2017-04-28 02:33] LABS: Hemoglobin 11.2 g/dL (11.5-15.4); Immature Granulocytes % 0.5 % (0-4)
[2017-04-28 02:34] LABS: Hematocrit 33.9 % (35.3-44.9); Lymphocytes # 0.4 K/mcL (0.6-4.6); Lymphocytes % 20.6 %; Mean Corpuscular Hemoglobin 31.5 pg (28.0-33.3); Mean Corpuscular Volume 95.2 fL (83.0-100.0); Monocytes # 0.3 K/mcL (0.0-1.3); Monocytes % 12.6 %; Neutrophils # 1.3 K/mcL (1.6-8.9); Nucleated Red Blood Cells 1.5 /100 WBC (0); Platelet Count 113 K/mcL (140-400); Red Blood Count 3.56 M/mcL (3.82-4.97); Red Cell Distribution Width 12.2 % (11.5-14.5); Segmented Neutrophils % 66.3 %
[2017-04-28 02:51] LABS: Alanine Aminotransferase 33 Units/L (7-52); Albumin 3.2 g/dL (3.5-5.7); Albumin/Globulin Ratio 1.5 (1.1-2.2); Alkaline Phosphatase 48 Units/L (34-104); Aspartate Amino Transferase 39 Units/L (13-39); BUN/Creatinine Ratio 16 (6-26); Bilirubin,Total 0.2 mg/dL (0.3-1.0); Blood Urea Nitrogen 12 mg/dL (8-23); Calcium 8.3 mg/dL (8.6-10.3); Carbon Dioxide 27 mEq/L (23-29); Chloride 105 mEq/L (98-107); Globulin 2.1 g/dL (2.4-3.5); Glucose 143 mg/dL (70-105); Osmolality,Calculated 290 (280-300); Potassium 3.8 mEq/L (3.5-5.1); Sodium 139 mEq/L (136-145); Total Protein 5.3 g/dL (6.4-8.9); eGFR For African Americans > 60 (> 60); eGFR For Non-African Americans > 60 (> 60)
[2017-04-28] MEDS: *HR* Promethazine 25 MG/ML VIAL IVP PRN ×4 (03:22→21:01)
[2017-04-28] MEDS: *HR* Heparin 5,000 UNIT/ML VIAL SQ SCH ×2 (03:26→17:35)
[2017-04-28] MEDS: Ipratropium/Albuterol Neb 3 ML IH SCH ×4 (04:07→22:00)
[2017-04-28] MEDS: 0.9 % Sodium Chloride 1,000 ML IVC SCH ×2 (07:45→17:35)
[2017-04-28] MEDS: Aspirin Enteric Coated 81 MG Tablet PO SCH (07:45)
[2017-04-28] MEDS: Oseltamivir Phosphate 30 MG CAPSULE PO SCH ×2 (07:46→21:01)
[2017-04-28] MEDS: predniSONE 20 MG TABLET PO SCH (07:46)
[2017-04-28] MEDS: Cholecalciferol (D-3) 1,000 UNIT TABLET PO SCH (07:46)
[2017-04-28] MEDS: Multivit/Ca/Min/Fe/FA 1 TAB TABLET PO SCH (07:46)
[2017-04-28] MEDS: *HR* HYDROcodone/Acet 5/325 mg TABLET PO PRN ×2 (07:49→19:33)
[2017-04-28] MEDS ORDERED: ALPRAZolam 1 MG TABLET PO ONE (08:52)
[2017-04-28] MEDS: ALPRAZolam 0.5 MG TABLET PO SCH ×2 (08:53→21:01)
--- NOTE | 2017-04-28 13:25 | Internal Med Progress Note ---
Date of Encounter: 04/28/17 Time of Encounter: 08:35 - Assessment and plan (1) Acute exacerbation of chronic obstructive airways disease Current Visit: Yes Status: Acute Assessment and plan: Lungs clear and diminshed, she reports improvement in cough. Continue Tamiflu Continue IV Zithromax for COPD Continue O2 as needed to maintain sats greater than 92% Due to nebs every 6. Prednisone 40 mg by mouth daily. Monitor vital signs with pulse ox. (2) Weight loss Current Visit: Yes Status: Chronic Assessment and plan: Ten to 15 pound weight loss over the last 2-3 years with increasing weight loss. Nutrition consult for supplements Daily weights, stable. Encourage po intake (3) Chest pain Current Visit: Yes Status: Acute Assessment and plan: Patient reports 3-4 day history of left chest pain without radiation. The pain is not reproducible. Denies chest pain today. Troponins are negative. Chest x-ray is negative. Chest CT indicative of possible bronchiolitis or aspiration. Chronic emphysema and chronic bronchitis noted. Echo 1 year ago with preserved EF and no significant valvular dysfunction. Echo 04/27/16 shows EF 65% with mild-moderate TR and indeterminate diastolic function. EKG sinus rhythm without any ST changes, rate 76. Continue telemetry Continue current pain control regimen Monitor labs and vitals. Qualifiers: Chest pain type: unspecified Qualified Code(s): R07.9 - Chest pain, unspecified (4) Bronchitis Current Visit: Yes Status: Acute Assessment and plan: Plan as above. (5) Hyponatremia Current Visit: Yes Status: Resolved Assessment and plan: Resolved. Continue to monitor. (6) Leukopenia Current Visit: Yes Status: Acute Assessment and plan: Improving. WBC 2.0 today. Pt has been seen by oncology, most likely due to viral illness. Continue to watch. Bicytopenia with Plt 113, also improving. Qualifiers: Leukopenia type: neutropenia Neutropenia type: due to infection Qualified Code(s): D70.3 - Neutropenia due to infection (7) Influenza A Current Visit: Yes Status: Acute Assessment and plan: Patient also admitted for COPD exacerbation and bronchitis. Continue Tamiflu twice a day for 4 days and continue supportive care. Dose 3/8 on 04/28 pm Continue IV fluids, and supportive treatment. (8) DVT prophylaxis Current Visit: Yes Status: Acute Assessment and plan: Heparin subcutaneous twice a day. - Time Spent With Patient less than 15 minutes - Subjective Interval history: Patient was seen and assessed at bedside at 0835 AM. Pt is tearful and reports anxiety about being in the hospital and feels that she is not going to get better. She denies chest pain nvd, abd pain, headache, or dizziness. She denies any chills. - Constitutional Vitals: Temp Pulse Resp BP Pulse Ox 98.1 F 48 15 102/62 98 04/28/17 11:31 04/28/17 11:31 04/28/17 11:31 04/28/17 11:31 04/28/17 11:31 General appearance: Present: cachectic, cooperative, mild distress, A&O X 3, pleasant, no acute distress, underweight, answers questions appropriately - Head Head exam: Present: atraumatic, normal inspection, normocephalic - Eye Eye exam: Present: normal appearance, conjuntiva pink, sclera anicteric - Neck Neck exam general surgery: Present: supple, trachea midline. Absent: lymphadenopathy, tenderness - Respiratory Respiratory exam: Present: decreased breath sounds, CTAB. Absent: accessory muscle use, chest wall tenderness, rales, respiratory distress, rhonchi, wheezes - Cardiovascular Cardiovascular exam: Present: RRR, +S1, +S2. Absent: diastolic murmur, gallop, rubs, systolic murmur - GI/Abdominal GI/Abdominal exam: Present: normal bowel sounds, soft. Absent: distended, hepatomegaly, tenderness - Extremities Exam Extremities exam: Present: normal capillary refill, warm, radial pulses palpable and symmetrical. Absent: calf tenderness, cyanotic, pedal edema, tenderness - Neurological Exam Neurological exam: Present: alert, oriented X3, no focal deficits. Absent: altered, facial droop, speech deficit - Skin Skin exam: Present: dry, intact, normal color, warm. Absent: rash Internal Medicine: Result - Labs CBC & Chem 7: 04/28/17 02:21 04/28/17 02:21 Labs: Short CBC 04/28/17 Range/Units 02:21 WBC 2.0 L D (4.3-11.1) K/mcL Hgb 11.2 L (11.5-15.4) g/dL Hct 33.9 L (35.3-44.9) % Plt Count 113 L (140-400) K/mcL Neutrophils # 1.3 L (1.6-8.9) K/mcL BMP 04/28/17 02:21 Sodium 139 Potassium 3.8 Chloride 105 Carbon Dioxide 27 BUN 12 Creatinine 0.75 Glucose 143 H Calcium 8.3 L Liver Function 04/28/17 Range/Units 02:21 Total Bilirubin 0.2 L (0.3-1.0) mg/dL AST 39 (13-39) Units/L ALT 33 (7-52) Units/L Alkaline Phosphatase 48 (34-104) Units/L Albumin 3.2 L (3.5-5.7) g/dL - Impressions Impressions Echocardiogram 04/26/17 18:23 Impressions: LVEF 65%. Indeterminate diastolic function. Mildly dilated RV with normal function. Mild-moderate tricuspid regurgitation. Moderate pulmonary hypertension. Left Ventricular Wall Motion: Rest Echo Findings The mid anterior septal, mid inferior lateral, basal anterior septal and basal inferior lateral benitez were not visualized. All other wall segments showed normal motion. Findings: Study Quality * Acceptable image quality. ECG Findings * Sinus bradycardia and sinus rhythm. Left Ventricle * LVEF 65%. * Normal appearing LV size and wall thickness. * Indeterminate diastolic function. Right Ventricle * Mildly dilated RV with normal function. Left Atrium * Normal left atrial size. Right Atrium * Moderately dilated right atrium. Aortic Valve * No aortic regurgitation. * Trileaflet aortic valve. * No aortic stenosis. Mitral Valve * Normal mitral valve structure. * No mitral regurgitation. * No mitral stenosis. Tricuspid Valve * Normal tricuspid valve structure. * Mild-moderate tricuspid regurgitation. * Estimated RA pressure is 3 mmHg. * Estimated RVSP is 58 mmHg. * Moderate pulmonary hypertension. Pulmonic Valve * Pulmonic valve is not well visualized. * No pulmonic stenosis. * No pulmonic regurgitation. Pulmonary Artery * Pulmonary artery not well visualized. Aorta * Not well visualized. Pericardium * There is no pericardial effusion present. Interatrial Septum * No evidence of PFO by color Doppler. IVC * Normal IVC dimensions and inspiratory collapse. Abdomen/Pelvis CT 04/26/17 21:30 IMPRESSION: 1. No acute findings within the abdomen to explain the patient's recent weight loss. 2. Stable 1.5 cm right adrenal adenoma. 3. Moderately severe aortoiliac atherosclerotic disease. No aneurysm. D/ / 04/27/2017 07:29:14 Jonah Hogan MD / Ivis Jara Interpreting Provider: Jonah Hogan MD Chest CT 04/26/17 21:30 IMPRESSION: 1. No acute findings of the chest. 2. Emphysema and chronic bronchitis. 3. Minimal debris or mucus within some bilateral lower lobe small bronchi. Findings could represent sequela of bronchiolitis or aspiration. 4. Please see separate same day CT of the abdomen and pelvis. D/ / 04/27/2017 07:27:35 Nate Myers MD / Ivis Jara Interpreting Provider: Nate Myers MD Consult Discharge Plan - Plan Referrals: Colby Samuel DO [Primary Care Provider] -
[2017-04-28] MEDS: Azithromycin 500 MG in D5% in Water 250 ML IVPB SCH (17:34)
[2017-04-29 03:21] LABS: Hematocrit 36.1 % (35.3-44.9); Hemoglobin 11.8 g/dL (11.5-15.4); Immature Granulocytes % 0.3 % (0-4); Lymphocytes # 1.4 K/mcL (0.6-4.6); Lymphocytes % 42.8 %; Mean Corpuscular HGB Conc 32.7 g/dL (31.6-35.5); Mean Corpuscular Hemoglobin 31.5 pg (28.0-33.3); Mean Corpuscular Volume 96.3 fL (83.0-100.0); Mean Platelet Volume 10.7 fL (9.4-12.4); Monocytes # 0.3 K/mcL (0.0-1.3); Neutrophils # 1.6 K/mcL (1.6-8.9); Platelet Count 102 K/mcL (140-400); Red Blood Count 3.75 M/mcL (3.82-4.97); Red Cell Distribution Width 12.3 % (11.5-14.5); Segmented Neutrophils % 47.9 %
[2017-04-29] MEDS: Ipratropium/Albuterol Neb 3 ML IH SCH ×4 (03:32→21:30)
[2017-04-29 03:38] LABS: Alanine Aminotransferase 29 Units/L (7-52); Albumin 3.2 g/dL (3.5-5.7); Albumin/Globulin Ratio 1.5 (1.1-2.2); Alkaline Phosphatase 49 Units/L (34-104); Aspartate Amino Transferase 34 Units/L (13-39); BUN/Creatinine Ratio 22 (6-26); Bilirubin,Total 0.3 mg/dL (0.3-1.0); Blood Urea Nitrogen 15 mg/dL (8-23); Calcium 8.6 mg/dL (8.6-10.3); Carbon Dioxide 33 mEq/L (23-29); Chloride 106 mEq/L (98-107); Globulin 2.1 g/dL (2.4-3.5); Glucose 83 mg/dL (70-105); Osmolality,Calculated 290 (280-300); Potassium 4.2 mEq/L (3.5-5.1); Sodium 140 mEq/L (136-145); Total Protein 5.3 g/dL (6.4-8.9); eGFR For African Americans > 60 (> 60); eGFR For Non-African Americans > 60 (> 60)
[2017-04-29] MEDS: *HR* Promethazine 25 MG/ML VIAL IVP PRN ×4 (03:45→22:06)
[2017-04-29 04:03] LABS: Platelet Estimate Decreased (Normal)
[2017-04-29] MEDS: *HR* Heparin 5,000 UNIT/ML VIAL SQ SCH (05:32)
--- NOTE | 2017-04-29 07:13 | Electrocardiograph Report ---
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
[2017-04-29] MEDS: *HR* HYDROcodone/Acet 5/325 mg TABLET PO PRN ×2 (09:25→19:26)
[2017-04-29] MEDS: Cholecalciferol (D-3) 1,000 UNIT TABLET PO SCH (09:25)
[2017-04-29] MEDS: Multivit/Ca/Min/Fe/FA 1 TAB TABLET PO SCH (09:25)
[2017-04-29] MEDS: Aspirin Enteric Coated 81 MG Tablet PO SCH (09:25)
[2017-04-29] MEDS: Oseltamivir Phosphate 30 MG CAPSULE PO SCH ×2 (09:26→20:41)
[2017-04-29] MEDS: predniSONE 20 MG TABLET PO SCH (09:26)
[2017-04-29] MEDS: 0.9 % Sodium Chloride 1,000 ML IVC SCH (11:39)
[2017-04-29] MEDS: ALPRAZolam 0.5 MG TABLET PO SCH ×2 (11:39→20:41)
--- NOTE | 2017-04-29 16:28 | Internal Med Progress Note ---
Date of Encounter: 04/29/17 Time of Encounter: 16:26 - Assessment and plan (1) Acute exacerbation of chronic obstructive airways disease Current Visit: Yes Status: Acute Assessment and plan: Known history of COPD. Presented with increasing shortness of breath/dyspnea for 3 days. IV azithromycin, add ceftriaxone, steroids and breathing treatments. Breast Vettori PCR, urinary antigens pending. Continue supplemental O2 PRN (2) Influenza A Current Visit: Yes Status: Acute Assessment and plan: Resp PCR positive for influenza A. Continue Tamiflu, IV fluids and supportive treatment. (3) Leukopenia Current Visit: Yes Status: Acute Assessment and plan: WBC 0.7; now improving. Evaluated by Oncology who suspect secondary to viral illness. Cont to monitor Qualifiers: Leukopenia type: neutropenia Neutropenia type: due to infection Qualified Code(s): D70.3 - Neutropenia due to infection (4) DVT prophylaxis Current Visit: Yes Status: Acute Assessment and plan: SCDs with thrombocytopenia - Subjective Interval history: Seen and examined at that time. Patient is new to me, information obtained from chart review and patient report. Says she feels about the same, no significant improvement. Feels weak and easily tired. No shortness of breath or chest pain. She feels she needs at least 1 more night in the hospital. - Constitutional Vitals: Temp Pulse Resp BP Pulse Ox 98.3 F 65 16 122/63 92 04/29/17 15:57 04/29/17 15:57 04/29/17 15:57 04/29/17 15:57 04/29/17 15:57 General appearance: Present: cachectic, cooperative, A&O X 3, pleasant, no acute distress, underweight, answers questions appropriately - Head Head exam: Present: atraumatic, normocephalic - Eye Eye exam: Present: PERRL, conjuntiva pink, sclera anicteric Pupils: Present: PERRL - Neck Neck exam general surgery: Present: supple, trachea midline. Absent: lymphadenopathy - Respiratory Respiratory exam: Present: wheezes. Absent: accessory muscle use, rales, rhonchi - Cardiovascular Cardiovascular exam: Present: RRR, +S1, +S2. Absent: diastolic murmur, gallop, rubs, systolic murmur - GI/Abdominal GI/Abdominal exam: Present: normal bowel sounds, soft, no peritoneal signs. Absent: distended, tenderness - Extremities Exam Extremities exam: Present: warm, radial pulses palpable and symmetrical. Absent : calf tenderness, cyanotic, pedal edema - Neurological Exam Neurological exam: Present: CN II-XII intact, oriented X3, no focal deficits. Absent: pronater drift, facial droop, speech deficit - Skin Skin exam: Present: dry, intact Internal Medicine: Result - Labs CBC & Chem 7: 04/29/17 03:05 04/29/17 03:05 Labs: Short CBC 04/29/17 Range/Units 03:05 WBC 3.3 L D (4.3-11.1) K/mcL Hgb 11.8 (11.5-15.4) g/dL Hct 36.1 (35.3-44.9) % Plt Count 102 L (140-400) K/mcL Neutrophils # 1.6 (1.6-8.9) K/mcL BMP 04/29/17 03:05 Sodium 140 Potassium 4.2 Chloride 106 Carbon Dioxide 33 H BUN 15 Creatinine 0.69 Glucose 83 Calcium 8.6 Liver Function 04/29/17 Range/Units 03:05 Total Bilirubin 0.3 (0.3-1.0) mg/dL AST 34 (13-39) Units/L ALT 29 (7-52) Units/L Alkaline Phosphatase 49 (34-104) Units/L Albumin 3.2 L (3.5-5.7) g/dL Consult Discharge Plan - Plan Referrals: Colby Samuel DO [Primary Care Provider] -
[2017-04-29] MEDS: cefTRIAXone 1,000 MG in Water for inj. (sterile) 10 ML IVPB SCH (17:42)
[2017-04-29] MEDS: Azithromycin 500 MG in D5% in Water 250 ML IVPB SCH (17:43)
[2017-04-29 22:40] LABS: Adenovirus Not Detected (Not Detect); Bordetella Pertussis Not Detected (Not Detect); Chlamydophila pneumoniae Not Detected (Not Detect); Coronavirus 229E Not Detected (Not Detect); Coronavirus HKU1 Not Detected (Not Detect); Coronavirus NL63 Not Detected (Not Detect); Coronavirus OC43 Not Detected (Not Detect); Human Metapneumovirus Not Detected (Not Detect); Human Rhinovirus/Enterovirus Not Detected (Not Detect); Influenza A Subtype 2009 H1 Not Detected (Not Detect); Influenza A Untypeable Not Detected (Not Detect); Influenza B Not Detected (Not Detect); Mycoplasma pneumoniae Not Detected (Not Detect); Parainfluenza Virus 1 Not Detected (Not Detect); Parainfluenza Virus 2 Not Detected (Not Detect); Parainfluenza Virus 3 Not Detected (Not Detect); Parainfluenza Virus 4 Not Detected (Not Detect); Respiratory Syncytial Virus Not Detected (Not Detect)
[2017-04-30] MEDS: Ipratropium/Albuterol Neb 3 ML IH SCH ×4 (03:27→21:33)
[2017-04-30] MEDS: 0.9 % Sodium Chloride 1,000 ML IVC SCH ×2 (03:56→18:38)
[2017-04-30] MEDS: *HR* Promethazine 25 MG/ML VIAL IVP PRN ×4 (04:02→23:33)
[2017-04-30 04:13] LABS: Basophils % 0.3 %; Hemoglobin 12.2 g/dL (11.5-15.4); Mean Corpuscular Hemoglobin 31.4 pg (28.0-33.3)
[2017-04-30 04:14] LABS: Hematocrit 36.1 % (35.3-44.9); Immature Platelets 6.8 % (1.1-6.1); Lymphocytes # 1.7 K/mcL (0.6-4.6); Lymphocytes % 47.3 %; Mean Corpuscular HGB Conc 33.8 g/dL (31.6-35.5); Monocytes # 0.3 K/mcL (0.0-1.3); Monocytes % 9.3 %; Neutrophils # 1.5 K/mcL (1.6-8.9); Red Blood Count 3.88 M/mcL (3.82-4.97); Segmented Neutrophils % 43.1 %
[2017-04-30 04:18] LABS: Platelet Count 96 K/mcL (140-400)
[2017-04-30 05:44] LABS: Alanine Aminotransferase 29 Units/L (7-52); Albumin 3.3 g/dL (3.5-5.7); Albumin/Globulin Ratio 1.3 (1.1-2.2); Alkaline Phosphatase 48 Units/L (34-104); Aspartate Amino Transferase 30 Units/L (13-39); BUN/Creatinine Ratio 23 (6-26); Bilirubin,Total 0.3 mg/dL (0.3-1.0); Blood Urea Nitrogen 15 mg/dL (8-23); Calcium 8.7 mg/dL (8.6-10.3); Carbon Dioxide 31 mEq/L (23-29); Chloride 106 mEq/L (98-107); Globulin 2.6 g/dL (2.4-3.5); Glucose 75 mg/dL (70-105); Osmolality,Calculated 294 (280-300); Potassium 3.9 mEq/L (3.5-5.1); Sodium 142 mEq/L (136-145); Total Protein 5.9 g/dL (6.4-8.9); eGFR For African Americans > 60 (> 60); eGFR For Non-African Americans > 60 (> 60)
[2017-04-30] MEDS: *HR* HYDROcodone/Acet 5/325 mg TABLET PO PRN ×2 (08:36→15:49)
[2017-04-30] MEDS: Cholecalciferol (D-3) 1,000 UNIT TABLET PO SCH (08:36)
[2017-04-30] MEDS: Oseltamivir Phosphate 30 MG CAPSULE PO SCH ×2 (08:36→21:28)
[2017-04-30] MEDS: Multivit/Ca/Min/Fe/FA 1 TAB TABLET PO SCH (08:36)
[2017-04-30] MEDS: Aspirin Enteric Coated 81 MG Tablet PO SCH (08:36)
[2017-04-30] MEDS: predniSONE 20 MG TABLET PO SCH (08:37)
[2017-04-30] MEDS: ALPRAZolam 0.5 MG TABLET PO SCH ×3 (08:39→21:28)
--- NOTE | 2017-04-30 13:33 | Internal Med Progress Note ---
Date of Encounter: 04/30/17 Time of Encounter: 09:00 - Assessment and plan (1) Acute exacerbation of chronic obstructive airways disease Current Visit: Yes Status: Acute Assessment and plan: Known history of COPD. Presented with increasing shortness of breath/dyspnea for 3 days. IV azithromycin, add ceftriaxone, steroids and breathing treatments. PCR, urinary antigens negative. Continue supplemental O2 PRN (2) Influenza A Current Visit: Yes Status: Acute Assessment and plan: Resp PCR positive for influenza A. Continue Tamiflu, IV fluids and supportive treatment. (3) Leukopenia Current Visit: Yes Status: Acute Assessment and plan: WBC 0.7; now improving. Evaluated by Oncology who suspect secondary to viral illness. Cont to monitor. WBC 3.5 on 04/30 Qualifiers: Leukopenia type: neutropenia Neutropenia type: due to infection Qualified Code(s): D70.3 - Neutropenia due to infection (4) Conjunctivitis Current Visit: Yes Status: Acute Assessment and plan: suspect bacterial conjunctivitis with pink sclera, eyes matted shut. Add erythromycin Qualifiers: Conjunctivitis type: acute Acute conjunctivitis type: bacterial Laterality: bilateral Qualified Code(s): H10.33 - Unspecified acute conjunctivitis, bilateral (5) Enlarged lymph node Current Visit: Yes Status: Acute Assessment and plan: enlarged bilateral submandibular lymph nodes noted on 04/30/17 exam. Etiology unknown. Possibly secondary to influenza. Check rapid strep (6) DVT prophylaxis Current Visit: Yes Status: Acute Assessment and plan: SCDs with thrombocytopenia - Subjective Interval history: Seen and examined at that time; says she feels about the same. She is complaining of enlarged bilateral neck lymph nodes and pinkeye. She still feels weak and does not feel like she is able to go home. Also she has pinkeye to right eye as I is red, watery and matted shut this morning. No CP or SOB - Constitutional Vitals: Temp Pulse Resp BP Pulse Ox 98.5 F 53 15 118/63 95 04/30/17 11:25 04/30/17 11:25 04/30/17 11:25 04/30/17 11:25 04/30/17 11:25 General appearance: Present: cachectic, cooperative, A&O X 3, pleasant, no acute distress, underweight, answers questions appropriately - Head Head exam: Present: atraumatic, normocephalic - Eye Eye exam: Present: PERRL, conjuntiva pink, sclera anicteric Pupils: Present: PERRL - Neck Neck exam general surgery: Present: lymphadenopathy, supple, trachea midline Additional comments: Enlarged supramandibular lymph nodes - Respiratory Respiratory exam: Present: CTAB. Absent: accessory muscle use, rales, rhonchi, wheezes - Cardiovascular Cardiovascular exam: Present: RRR, +S1, +S2. Absent: diastolic murmur, gallop, rubs, systolic murmur - GI/Abdominal GI/Abdominal exam: Present: normal bowel sounds, soft, no peritoneal signs. Absent: distended, tenderness - Extremities Exam Extremities exam: Present: warm, radial pulses palpable and symmetrical. Absent : calf tenderness, cyanotic, pedal edema - Neurological Exam Neurological exam: Present: CN II-XII intact, oriented X3, no focal deficits. Absent: pronater drift, facial droop, speech deficit - Skin Skin exam: Present: dry, intact Internal Medicine: Result - Labs CBC & Chem 7: 04/30/17 03:40 04/30/17 03:40 Labs: Short CBC 04/30/17 Range/Units 03:40 WBC 3.5 L (4.3-11.1) K/mcL Hgb 12.2 (11.5-15.4) g/dL Hct 36.1 (35.3-44.9) % Plt Count 96 L (140-400) K/mcL Neutrophils # 1.5 L (1.6-8.9) K/mcL BMP 04/30/17 03:40 Sodium 142 Potassium 3.9 Chloride 106 Carbon Dioxide 31 H BUN 15 Creatinine 0.65 Glucose 75 Calcium 8.7 Liver Function 04/30/17 Range/Units 03:40 Total Bilirubin 0.3 (0.3-1.0) mg/dL AST 30 (13-39) Units/L ALT 29 (7-52) Units/L Alkaline Phosphatase 48 (34-104) Units/L Albumin 3.3 L (3.5-5.7) g/dL Consult Discharge Plan - Plan Referrals: Colby Samuel DO [Primary Care Provider] - 05/08/17 2:30 pm
[2017-04-30] MEDS: Erythromycin OPTH Oint BOTH EYES SCH ×2 (15:42→21:29)
[2017-04-30] MEDS: cefTRIAXone 1,000 MG in Water for inj. (sterile) 10 ML IVPB SCH (17:14)
[2017-04-30] MEDS: Azithromycin 500 MG in D5% in Water 250 ML IVPB SCH (18:38)
[2017-05-01] MEDS: Acetaminophen/Butalbital/CaffeineTABLET PO PRN ×3 (03:20→15:33)
[2017-05-01] MEDS ORDERED: Acetaminophen/Butalbital/CaffeineTABLET ONE (03:21)
[2017-05-01] MEDS ORDERED: *HR* LORazepam 2 MG/ML VIAL ONE (04:11)
[2017-05-01] MEDS ORDERED: *HR* LORazepam 2 MG/ML VIAL IVP ONE (04:15)
[2017-05-01] MEDS: Ipratropium/Albuterol Neb 3 ML IH SCH ×4 (04:46→21:52)
[2017-05-01 06:46] LABS: Hematocrit 38.4 % (35.3-44.9); Hemoglobin 12.8 g/dL (11.5-15.4); Mean Corpuscular HGB Conc 33.3 g/dL (31.6-35.5); Mean Corpuscular Hemoglobin 31.1 pg (28.0-33.3); Mean Corpuscular Volume 93.2 fL (83.0-100.0); Mean Platelet Volume 11.1 fL (9.4-12.4); Nucleated Red Blood Cells 0.4 /100 WBC (0); Platelet Count 103 K/mcL (140-400); Red Blood Count 4.12 M/mcL (3.82-4.97)
[2017-05-01 07:03] LABS: Alanine Aminotransferase 30 Units/L (7-52); Albumin 3.4 g/dL (3.5-5.7); Albumin/Globulin Ratio 1.5 (1.1-2.2); Alkaline Phosphatase 48 Units/L (34-104); Aspartate Amino Transferase 28 Units/L (13-39); BUN/Creatinine Ratio 21 (6-26); Bilirubin,Total 0.3 mg/dL (0.3-1.0); Blood Urea Nitrogen 12 mg/dL (8-23); Calcium 8.5 mg/dL (8.6-10.3); Carbon Dioxide 31 mEq/L (23-29); Chloride 106 mEq/L (98-107); Globulin 2.2 g/dL (2.4-3.5); Glucose 85 mg/dL (70-105); Osmolality,Calculated 289 (280-300); Potassium 3.8 mEq/L (3.5-5.1); Sodium 140 mEq/L (136-145); Total Protein 5.6 g/dL (6.4-8.9); eGFR For African Americans > 60 (> 60); eGFR For Non-African Americans > 60 (> 60)
[2017-05-01] MEDS: *HR* Promethazine 25 MG/ML VIAL IVP PRN ×3 (08:19→22:46)
[2017-05-01 09:56] LABS: Eosinophils # 0.1 K/mcL (0.0-0.6); Lymphocytes # 1.7 K/mcL (0.6-4.6); Monocytes # 0.4 K/mcL (0.0-1.3); Neutrophils # 3.3 K/mcL (1.6-8.9)
[2017-05-01 09:58] LABS: Platelet Estimate Decreased (Normal)
[2017-05-01] MEDS: Multivit/Ca/Min/Fe/FA 1 TAB TABLET PO SCH (10:57)
[2017-05-01] MEDS: predniSONE 20 MG TABLET PO SCH (10:57)
[2017-05-01] MEDS: Cholecalciferol (D-3) 1,000 UNIT TABLET PO SCH (10:57)
[2017-05-01] MEDS: ALPRAZolam 0.5 MG TABLET PO SCH ×2 (10:57→21:42)
[2017-05-01] MEDS: Aspirin Enteric Coated 81 MG Tablet PO SCH (10:57)
[2017-05-01] MEDS: *HR* HYDROcodone/Acet 5/325 mg TABLET PO PRN ×2 (10:57→22:46)
[2017-05-01] MEDS: Oseltamivir Phosphate 30 MG CAPSULE PO SCH (10:58)
[2017-05-01] MEDS: 0.9 % Sodium Chloride 1,000 ML IVC SCH ×3 (10:59→22:28)
[2017-05-01] MEDS: Erythromycin OPTH Oint BOTH EYES SCH ×3 (11:02→21:42)
--- NOTE | 2017-05-01 14:00 | Internal Med Progress Note ---
Date of Encounter: 05/01/17 Time of Encounter: 11:00 - Assessment and plan (1) Acute exacerbation of chronic obstructive airways disease Current Visit: Yes Status: Acute Assessment and plan: Known history of COPD. Presented with increasing shortness of breath/dyspnea for 3 days. IV azithromycin, add ceftriaxone, steroids and breathing treatments. PCR, urinary antigens negative. Continue supplemental O2 PRN (2) Influenza A Current Visit: Yes Status: Acute Assessment and plan: Resp PCR positive for influenza A. Continue Tamiflu, IV fluids and supportive treatment. (3) Leukopenia Current Visit: Yes Status: Acute Assessment and plan: WBC 0.7; now improving. Evaluated by Oncology who suspect secondary to viral illness. Cont to monitor. WBC 5.5 on 05/01 Qualifiers: Leukopenia type: neutropenia Neutropenia type: due to infection Qualified Code(s): D70.3 - Neutropenia due to infection (4) Conjunctivitis Current Visit: Yes Status: Acute Assessment and plan: suspect bacterial conjunctivitis with pink sclera, eyes matted shut. Add erythromycin Qualifiers: Conjunctivitis type: acute Acute conjunctivitis type: bacterial Laterality: bilateral Qualified Code(s): H10.33 - Unspecified acute conjunctivitis, bilateral (5) Enlarged lymph node Current Visit: Yes Status: Acute Assessment and plan: enlarged bilateral submandibular lymph nodes noted on 04/30/17 exam. Etiology unknown. Possibly secondary to influenza. Check rapid strep (6) Headache Current Visit: Yes Status: Acute Assessment and plan: Complained of the worst headache of her life overnight on 04/30 area and has known aneurysm clipping. Head CT with evidence of left frontal craniotomy and aneurysm clipping. Otherwise nonacute. Received Fioricet for headache area. And add PRN Imitrex. Qualifiers: Headache type: tension-type Headache chronicity pattern: acute headache Intractability: not intractable Qualified Code(s): G44.209 - Tension-type headache, unspecified, not intractable (7) DVT prophylaxis Current Visit: Yes Status: Acute Assessment and plan: SCDs with thrombocytopenia - Subjective Interval history: Seen and examined at that time; says she had a headache overnight. Describes as the worst headache of her life, throbbing located to entire head and radiated to the neck. The with mild headache on my exam, overall significantly improved. She has not been out of bed much, still feels weak and tired. Strongly encouraged ambulation and out of bed for meals. - Constitutional Vitals: Temp Pulse Resp BP Pulse Ox 98.1 F 105 16 155/107 91 05/01/17 11:48 05/01/17 11:48 05/01/17 11:48 05/01/17 11:48 05/01/17 11:48 General appearance: Present: cachectic, cooperative, A&O X 3, pleasant, no acute distress, underweight, answers questions appropriately - Head Head exam: Present: atraumatic, normocephalic - Eye Eye exam: Present: PERRL, conjuntiva pink, sclera anicteric Pupils: Present: PERRL - Neck Neck exam general surgery: Present: supple, trachea midline. Absent: lymphadenopathy - Respiratory Respiratory exam: Present: CTAB. Absent: accessory muscle use, rales, rhonchi, wheezes - Cardiovascular Cardiovascular exam: Present: RRR, +S1, +S2. Absent: diastolic murmur, gallop, rubs, systolic murmur - GI/Abdominal GI/Abdominal exam: Present: normal bowel sounds, soft, no peritoneal signs. Absent: distended, tenderness - Extremities Exam Extremities exam: Present: warm, radial pulses palpable and symmetrical. Absent : calf tenderness, cyanotic, pedal edema - Neurological Exam Neurological exam: Present: CN II-XII intact, oriented X3, no focal deficits. Absent: pronater drift, facial droop, speech deficit - Skin Skin exam: Present: dry, intact Internal Medicine: Result - Labs CBC & Chem 7: 05/01/17 06:30 05/01/17 06:30 Labs: Short CBC 05/01/17 Range/Units 06:30 WBC 5.5 D (4.3-11.1) K/mcL Hgb 12.8 (11.5-15.4) g/dL Hct 38.4 (35.3-44.9) % Plt Count 103 L (140-400) K/mcL Neutrophils # 3.3 (1.6-8.9) K/mcL BMP 05/01/17 06:30 Sodium 140 Potassium 3.8 Chloride 106 Carbon Dioxide 31 H BUN 12 Creatinine 0.58 L Glucose 85 Calcium 8.5 L Liver Function 05/01/17 Range/Units 06:30 Total Bilirubin 0.3 (0.3-1.0) mg/dL AST 28 (13-39) Units/L ALT 30 (7-52) Units/L Alkaline Phosphatase 48 (34-104) Units/L Albumin 3.4 L (3.5-5.7) g/dL - Impressions Impressions Head CT 05/01/17 02:57 IMPRESSION: Small vessel chronic ischemic changes without acute hemorrhage or definite evidence for acute ischemia. D/ / 05/01/2017 09:21:09 Lalito Weldon MD / Ivis Jara Interpreting Provider: Lalito Weldon MD Consult Discharge Plan - Plan Referrals: Colby Samuel DO [Primary Care Provider] - 05/08/17 2:30 pm
[2017-05-01] MEDS ORDERED: SUMAtriptan 6 MG/0.5 ML SQ ONE (15:58)
[2017-05-01] MEDS: cefTRIAXone 1,000 MG in Water for inj. (sterile) 10 ML IVPB SCH (16:55)
[2017-05-01] MEDS ORDERED: Ketorolac 30 MG/ML VIAL IVP ONE (17:24)
[2017-05-01] MEDS ORDERED: Prochlorperazine 10 MG/2 ML VIAL IVP PRN (17:24)
[2017-05-01] MEDS: Azithromycin 250 MG TABLET PO SCH (18:47)
[2017-05-02] MEDS ORDERED: Ketorolac 15 MG/ML VIAL IVP ONE (03:08)
[2017-05-02] MEDS: Ipratropium/Albuterol Neb 3 ML IH SCH ×4 (03:55→19:38)
[2017-05-02] MEDS: *HR* HYDROcodone/Acet 5/325 mg TABLET PO PRN ×4 (05:01→23:11)
[2017-05-02] MEDS: *HR* Promethazine 25 MG/ML VIAL IVP PRN ×4 (05:01→23:10)
[2017-05-02 08:41] LABS: Hemoglobin 12.1 g/dL (11.5-15.4); Red Cell Distribution Width 12.1 % (11.5-14.5)
[2017-05-02 08:43] LABS: Immature Platelets 13.5 % (1.1-6.1); Mean Corpuscular HGB Conc 33.6 g/dL (31.6-35.5); Mean Corpuscular Hemoglobin 31.5 pg (28.0-33.3); Mean Corpuscular Volume 93.8 fL (83.0-100.0); Mean Platelet Volume 11.9 fL (9.4-12.4); Red Blood Count 3.84 M/mcL (3.82-4.97)
[2017-05-02] MEDS: Erythromycin OPTH Oint BOTH EYES SCH ×3 (08:50→20:42)
[2017-05-02] MEDS: ALPRAZolam 0.5 MG TABLET PO SCH ×2 (08:50→20:42)
[2017-05-02] MEDS: predniSONE 20 MG TABLET PO SCH (08:50)
[2017-05-02] MEDS: Multivit/Ca/Min/Fe/FA 1 TAB TABLET PO SCH (08:50)
[2017-05-02] MEDS: Aspirin Enteric Coated 81 MG Tablet PO SCH (08:50)
[2017-05-02] MEDS: Cholecalciferol (D-3) 1,000 UNIT TABLET PO SCH (08:50)
[2017-05-02] MEDS: 0.9 % Sodium Chloride 1,000 ML IVC SCH (11:17)
--- NOTE | 2017-05-02 11:52 | Internal Med Progress Note ---
Date of Encounter: 05/02/17 Time of Encounter: 10:00 - Assessment and plan (1) Acute exacerbation of chronic obstructive airways disease Current Visit: Yes Status: Acute Assessment and plan: Known history of COPD. Presented with increasing shortness of breath/dyspnea for 3 days. IV azithromycin, add ceftriaxone, steroids and breathing treatments. PCR, urinary antigens negative. Continue supplemental O2 PRN (2) Influenza A Current Visit: Yes Status: Acute Assessment and plan: Resp PCR positive for influenza A. Continue Tamiflu, supportive treatment. (3) Leukopenia Current Visit: Yes Status: Acute Assessment and plan: WBC 0.7; now improving. Evaluated by Oncology who suspect secondary to viral illness. Cont to monitor. WBC 5.4 on 05/02 Qualifiers: Leukopenia type: neutropenia Neutropenia type: due to infection Qualified Code(s): D70.3 - Neutropenia due to infection (4) Conjunctivitis Current Visit: Yes Status: Acute Assessment and plan: suspect bacterial conjunctivitis with pink sclera, eyes matted shut. Cont erythromycin Qualifiers: Conjunctivitis type: acute Acute conjunctivitis type: bacterial Laterality: bilateral Qualified Code(s): H10.33 - Unspecified acute conjunctivitis, bilateral (5) Enlarged lymph node Current Visit: Yes Status: Acute Assessment and plan: enlarged bilateral submandibular lymph nodes. No other lymphadenopathy apparent on exam. Possibly secondary to influenza. Rapid strep negative. No recent feline contact, low suspicion for Scr[place] fever. Patient endorses dysphagia and weight loss. Concerned for possible underlying malignancy. Peripheral blood smear pending (6) Thrombocytopenia Current Visit: Yes Status: Acute Assessment and plan: PLT 147 on admission and dropped to 79 on 05/02. No active bleeding. Peripheral blood smear pending. (7) Headache Current Visit: Yes Status: Acute Assessment and plan: Complained of the worst headache of her life overnight on 04/30; known hx aneurysm. Head CT with evidence of left frontal craniotomy and aneurysm clipping; otherwise nonacute. No previous history of migraines. Headache relieved with Fioricet, worsened with Imitrex. Has had 3 migraine headaches all and patient. Last received at a cocktail 05/01 evening. Hesitant to return home for fear of recurrent migraine. Currently denies headache, consult Neurology for further recommendations Qualifiers: Headache type: tension-type Headache chronicity pattern: acute headache Intractability: not intractable Qualified Code(s): G44.209 - Tension-type headache, unspecified, not intractable (8) DVT prophylaxis Current Visit: Yes Status: Acute Assessment and plan: SCDs with thrombocytopenia - Subjective Interval history: Seen and examined at that time; says she doesn;t feel well today. No further headache, but she is reluctant to go home out of fear of migraine recurrence. No CPm or SOB. Feels weak and tired and has not been very mobile. - Constitutional Vitals: Temp Pulse Resp BP Pulse Ox 98.1 F 57 16 101/65 95 05/02/17 10:09 05/02/17 10:09 05/02/17 10:05/02/17 10:05/02/17 10:09 General appearance: Present: cachectic, cooperative, A&O X 3, pleasant, no acute distress, underweight, answers questions appropriately - Head Head exam: Present: atraumatic, normocephalic - Eye Eye exam: Present: PERRL, conjuntiva pink, sclera anicteric Pupils: Present: PERRL - Neck Neck exam general surgery: Present: supple, trachea midline. Absent: lymphadenopathy - Respiratory Respiratory exam: Present: CTAB. Absent: accessory muscle use, rales, rhonchi, wheezes - Cardiovascular Cardiovascular exam: Present: RRR, +S1, +S2. Absent: diastolic murmur, gallop, rubs, systolic murmur - GI/Abdominal GI/Abdominal exam: Present: normal bowel sounds, soft, no peritoneal signs. Absent: distended, tenderness - Extremities Exam Extremities exam: Present: warm, radial pulses palpable and symmetrical. Absent : calf tenderness, cyanotic, pedal edema - Neurological Exam Neurological exam: Present: CN II-XII intact, oriented X3, no focal deficits. Absent: pronater drift, facial droop, speech deficit - Skin Skin exam: Present: dry, intact Internal Medicine: Result - Labs CBC & Chem 7: 05/02/17 06:17 05/01/17 06:30 Labs: Short CBC 05/02/17 Range/Units 06:17 WBC 5.4 (4.3-11.1) K/mcL Hgb 12.1 (11.5-15.4) g/dL Hct 36.0 (35.3-44.9) % Plt Count 79 L (140-400) K/mcL - Impressions Impressions Head CT 05/01/17 02:57 IMPRESSION: Small vessel chronic ischemic changes without acute hemorrhage or definite evidence for acute ischemia. D/ / 05/01/2017 09:21:09 Lalito Weldon MD / Ivis Jara Interpreting Provider: Lalito Weldon MD Consult Discharge Plan - Plan Referrals: Colby Samuel DO [Primary Care Provider] - 05/08/17 2:30 pm
--- NOTE | 2017-05-02 13:52 | Neurology - Consult Note ---
<Gabino Pearce - Last Filed: 05/02/17 14:47> Date of Encounter: 05/02/17 Time of Encounter: 13:45 Assessment and Plan (1) Headache Current Visit: Yes Status: Acute Patient presents with global headaches, with mild nausea and no photophobia/ phonophobia. No aura present. I feel this is unlikely a migraine headache given the features above. Aneurysmal headache is certainly possible given her history of cerebral artery aneurysms however she did not have an aneurysmal rupture given a normal non contrast CT of the head. This is most likely a medication overuse headache or toxic headache related to her underlying viral illness. Patient takes chronic opioids at home to treat her daily headaches which can exacerbate further headaches. The treatment for this would be to decrease or completely discontinue her opioid pain medication. Symptomatic treatment with NSAIDs would be preferred over opioid pain medication. Recommend increasing IV fluid hydration. We will order CTA of head for aneurysmal monitoring. Qualifiers: Headache type: unspecified Headache chronicity pattern: acute headache Intractability: not intractable Qualified Code(s): R51 - Headache History of Present Illness Chief complaint: Headache HPI: Ms. 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 Patient was found to have influenza and COPD exacerbation and was treated accordingly. Patient states that 2 days ago she woke up to go to the bathroom and immediately after waking she had the worst headache of her life. She states this began after waking and did not wake her from her sleep. She states this persisted for several hours until she was given medication which greatly improved her headache. She is unsure what this medication was. She states her headache was greatly improved but never completely resolved. She states that a few hours later her headache returned. At the time of my exam she reports a mild headache. She reports mild nausea associated with these headaches but denies vomiting, photophobia/phonophobia. She states she has daily mild headaches at home that she treats with vicodin. She states that she was found to have cerebral artery aneurysm in 1999 which were found after she complained of headaches. She states her headaches feel different now. She underwent crainotomy with aneurysmal clipping of two aneurysms but was told that she had to more that were unable to be fixed with surgery or coiling. She does not follow up regularly for these aneurysms and has not had imaging in several years. She denies any focal neurological findings including numbness, weakness, facial droop, slurred speech, vision changes. Past Med Surg Social Fam HX - Past Medical History Medical history: COPD Psychiatric history: no psych history - Past Surgical History Surgical History: no surgical history, , carotid endarterectomy (Right) , hysterectomy (Total), other (Left leg bypass, brain aneurysm surgery) - Social History Smoking Status: Former smoker Packs per day: 1.5 PPD - Reports quitting in March 2017 Smokeless Tobacco Status: No Alcohol use: none Drug use: none - Family History Father History Unknown: Yes Race: Family Member Ethnicity: Non- Brother Race: Family Member Ethnicity: Non- Living Status: Age at : 50 Cause of : Lung cancer Hx Family Cardiac Disorders: Yes (Stroke) Hx Family Cancer: Yes (Lung) Sister Race: Family Member Ethnicity: Non- Living Status: Age at : 68 Cause of : COPD Hx Family Cardiac Disorders: Yes (PR) Hx Family Respiratory Disorders: Yes (COPD) Mother Adopted: No Race: Family Member Ethnicity: Non- Living Status: Age at : 83 Cause of : Aneurysm Hx Family Cardiac Disorders: Yes (Aneurysm, TIAs) Medications and Allergies Aspirin Enteric Coated [Aspirin EC] 81 mg PO DAILY 12/22/14 [History] Cholecalciferol (Vitamin D3) [Vitamin D] 1,000 unit PO DAILY 12/22/14 [History] Hydrocodone/Acetaminophen [[place] 5-325 Tablet] 1 tab PO Q6H PRN #4 tab 12/22/14 [Rx] ALPRAZolam [Xanax 0.5 MG Tablet] 0.5 mg PO BID 04/05/17 [History] Albuterol Sulfate [Albuterol Inhaler] 1 - 2 puff IH QID PRN 04/26/17 [History] Multivitamin [One Daily Essential] 1 tab PO DAILY 04/26/17 [History] 3 Allergy/AdvReac Type Severity Reaction Status Date / Time acetaminophen [From Percocet] AdvReac Nausea Verified 04/26/17 17:56 Oxycodone [From Percocet] AdvReac Nausea Verified 04/26/17 17:56 All Systems: A 10-system review of systems was performed and is negative for pertinent findings except as documented above in the HPI. Physical Examination - Vital Signs Vital Signs: Initial Vital Signs Temp Pulse Resp BP Pulse Ox 98.0 F 79 20 121/78 96 04/26/17 11:42 04/26/17 11:42 04/26/17 11:42 04/26/17 11:42 04/26/17 11:42 - Constitutional General appearance: comfortable - Neurologic Sensorimotor examination: intact Detailed motor examination: grossly full strength in all extremities Motor examination - right side: 5/5: deltoids, biceps, triceps, wrist flexion, wrist extension, school office assistant, hip flexors, tibialis Anterior, quadriceps, toe extension (EHL), plantarflexion Motor examination - left side: 5/5: deltoids, biceps, triceps, wrist flexion, wrist extension, hip flexors, school office assistant, quadriceps, tibialis Anterior, toe extension (EHL), plantarflexion Detailed sensory examination: intact, light touch Reflexes: Biceps: 2+, Brachioradialis: 2+, Patella: 2+, Achilles: 2+ Mental Status Examination: awake, alert, oriented to person, oriented to place, oriented to time, follows commands appropriately, answers questions appropriately, no aphasia Cranial nerve examination: PERRL, EOMI, visual champagne intact, sensory to face intact, mastication intact, no facial asymmetry is present, no dysarthria, soft palate elevates bilaterally upon phonation, flexes SCM and trapezius muscles symmetrically with full power, tongue protrudes midline, no atrophy or facial fasiculations present Cerebellar examination: performs finger to nose and heel to valdovinos symmetrically without ataxia Results - Laboratory Findings CBC and BMP: 05/02/17 06:17 05/01/17 06:30 Abnormal lab findings: Abnormal lab results Plt Count 79 K/mcL (140-400) L 05/02/17 06:17 Nucleated RBCs/100 WBC 0.4 /100 WBC (0) H 05/01/17 06:30 Platelet Estimate Decreased (Normal) L 05/01/17 06:30 Immature Plt Fraction 13.5 % (1.1-6.1) H 05/02/17 06:17 Carbon Dioxide 31 mEq/L (23-29) H 05/01/17 06:30 Creatinine 0.58 mg/dL (0.60-1.20) L 05/01/17 06:30 Hemoglobin A1c 5.7 % (-5.6) H 04/27/17 01:50 Calcium 8.5 mg/dL (8.6-10.3) L 05/01/17 06:30 Magnesium 1.4 mg/dL (1.6-2.6) L 04/27/17 01:50 Serum Total Protein 5.6 g/dL (6.4-8.9) L 05/01/17 06:30 Albumin 3.4 g/dL (3.5-5.7) L 05/01/17 06:30 Globulin 2.2 g/dL (2.4-3.5) L 05/01/17 06:30 Urine Clarity Cloudy (Clear) A 04/26/17 13:00 Ur Specific [place] > 1.030 (1.010-1.025) H 04/26/17 13:00 Urine Protein 30 mg/dL (Neg-Trace) H 04/26/17 13:00 Urine Ketones Trace mg/dL (Negative) H 04/26/17 13:00 Urine Bilirubin Small (Negative) H 04/26/17 13:00 Urine Microscopic WBC 5-15 per hpf (0-3) H 04/26/17 13:00 Ur Squamous Epith Cells Many per lpf (None-Few) H 04/26/17 13:00 Consult Discharge Plan - Plan Referrals: Colby Samuel DO [Primary Care Provider] - 05/08/17 2:30 pm <Gabino Gamez - Last Filed: 05/02/17 15:14> Date of Encounter: 05/02/17 Time of Encounter: 15:09 Assessment and Plan (1) Headache Current Visit: Yes Status: Acute I agree with Dr. Pearce as stated above. If the CTA scan of the brain does not reveal the aneurysms to be larger than 1 or 2 mm then she may be discharged home at your discretion. Qualifiers: Headache type: unspecified Headache chronicity pattern: acute headache Intractability: not intractable Qualified Code(s): R51 - Headache History of Present Illness HPI: The chart was reviewed, the patient was seen and examined along with Dr. Pearce. I agree with the history he is stated above. All Systems: A 10-system review of systems was performed and is negative for pertinent findings except as documented above in the HPI. Physical Examination - Vital Signs Vital Signs: Initial Vital Signs Temp Pulse Resp BP Pulse Ox 98.0 F 79 20 121/78 96 04/26/17 11:42 04/26/17 11:42 04/26/17 11:42 04/26/17 11:42 04/26/17 11:42 - Neurologic Detailed motor examination: full strength in all major muscle groups Motor examination - right side: 5/5: deltoids, biceps, triceps, wrist flexion, wrist extension, school office assistant, hip flexors, tibialis Anterior, quadriceps, toe extension (EHL), plantarflexion Motor examination - left side: 5/5: deltoids, biceps, triceps, wrist flexion, wrist extension, hip flexors, school office assistant, quadriceps, tibialis Anterior, toe extension (EHL), plantarflexion Mental Status Examination: awake, alert, oriented to person, oriented to place, oriented to time, follows commands appropriately, answers questions appropriately, no agnosia, no aphasia, no aproxia Cranial nerve examination: PERRL, EOMI, visual champagne intact, corneal reflexes brisk symmetrically, sensory to face intact, mastication intact, no facial asymmetry is present, no dysarthria, hearing is intact symmetrically, soft palate elevates bilaterally upon phonation, gag reflex intact, flexes SCM and trapezius muscles symmetrically with full power, tongue protrudes midline, no atrophy or facial fasiculations present Cerebellar examination: no dysmetria, performs finger to nose and heel to valdovinos symmetrically without ataxia, no gait ataxia, no truncal ataxia, no difficulty with rapid alternating movements Results - Laboratory Findings CBC and BMP: 05/02/17 06:17 05/01/17 06:30 Abnormal lab findings: Abnormal lab results Plt Count 79 K/mcL (140-400) L 05/02/17 06:17 Nucleated RBCs/100 WBC 0.4 /100 WBC (0) H 05/01/17 06:30 Platelet Estimate Decreased (Normal) L 05/01/17 06:30 Immature Plt Fraction 13.5 % (1.1-6.1) H 05/02/17 06:17 Carbon Dioxide 31 mEq/L (23-29) H 05/01/17 06:30 Creatinine 0.58 mg/dL (0.60-1.20) L 05/01/17 06:30 Hemoglobin A1c 5.7 % (-5.6) H 04/27/17 01:50 Calcium 8.5 mg/dL (8.6-10.3) L 05/01/17 06:30 Magnesium 1.4 mg/dL (1.6-2.6) L 04/27/17 01:50 Serum Total Protein 5.6 g/dL (6.4-8.9) L 05/01/17 06:30 Albumin 3.4 g/dL (3.5-5.7) L 05/01/17 06:30 Globulin 2.2 g/dL (2.4-3.5) L 05/01/17 06:30 Urine Clarity Cloudy (Clear) A 04/26/17 13:00 Ur Specific [place] > 1.030 (1.010-1.025) H 04/26/17 13:00 Urine Protein 30 mg/dL (Neg-Trace) H 04/26/17 13:00 Urine Ketones Trace mg/dL (Negative) H 04/26/17 13:00 Urine Bilirubin Small (Negative) H 04/26/17 13:00 Urine Microscopic WBC 5-15 per hpf (0-3) H 04/26/17 13:00 Ur Squamous Epith Cells Many per lpf (None-Few) H 04/26/17 13:00
[2017-05-02] MEDS: cefTRIAXone 1,000 MG in Water for inj. (sterile) 10 ML IVPB SCH (17:27)
[2017-05-02] MEDS: Azithromycin 250 MG TABLET PO SCH (20:42)
[2017-05-03] MEDS: Ipratropium/Albuterol Neb 3 ML IH SCH ×4 (03:18→21:39)
[2017-05-03] MEDS: *HR* Promethazine 25 MG/ML VIAL IVP PRN ×3 (06:46→15:52)
[2017-05-03 09:14] LABS: Hematocrit 38.2 % (35.3-44.9); Hemoglobin 13.1 g/dL (11.5-15.4); Mean Corpuscular HGB Conc 34.3 g/dL (31.6-35.5); Mean Corpuscular Hemoglobin 31.7 pg (28.0-33.3); Mean Corpuscular Volume 92.5 fL (83.0-100.0); Mean Platelet Volume 11.3 fL (9.4-12.4); Platelet Count 159 K/mcL (140-400); Red Blood Count 4.13 M/mcL (3.82-4.97); Red Cell Distribution Width 12.2 % (11.5-14.5)
[2017-05-03] MEDS: *HR* HYDROcodone/Acet 5/325 mg TABLET PO PRN ×3 (09:40→22:36)
[2017-05-03] MEDS: predniSONE 20 MG TABLET PO SCH (09:40)
[2017-05-03] MEDS: Aspirin Enteric Coated 81 MG Tablet PO SCH (09:41)
[2017-05-03] MEDS: Cholecalciferol (D-3) 1,000 UNIT TABLET PO SCH (09:41)
[2017-05-03] MEDS: ALPRAZolam 0.5 MG TABLET PO SCH ×2 (09:41→20:02)
[2017-05-03] MEDS: Multivit/Ca/Min/Fe/FA 1 TAB TABLET PO SCH (09:41)
[2017-05-03] MEDS: Erythromycin OPTH Oint BOTH EYES SCH ×3 (10:50→20:02)
--- NOTE | 2017-05-03 15:37 | Discharge Summary ---
Date of Encounter: 05/03/17 - Discharge Diagnosis (1) Acute exacerbation of chronic obstructive airways disease Status: Acute (2) Influenza A Status: Acute (3) Leukopenia Status: Acute Qualifiers: Leukopenia type: neutropenia Neutropenia type: due to infection Qualified Code(s): D70.3 - Neutropenia due to infection (4) Conjunctivitis Status: Acute Qualifiers: Conjunctivitis type: acute Acute conjunctivitis type: bacterial Laterality: bilateral Qualified Code(s): H10.33 - Unspecified acute conjunctivitis, bilateral (5) Enlarged lymph node Status: Acute (6) Thrombocytopenia Status: Acute (7) Headache Status: Acute Qualifiers: Headache type: unspecified Headache chronicity pattern: acute headache Intractability: not intractable Qualified Code(s): R51 - Headache (8) DVT prophylaxis Status: Acute - Discharge Medications Home Medications: Aspirin Enteric Coated [Aspirin EC] 81 mg PO DAILY 12/22/14 [History] Cholecalciferol (Vitamin D3) [Vitamin D] 1,000 unit PO DAILY 12/22/14 [History] Hydrocodone/Acetaminophen [[place] 5-325 Tablet] 1 tab PO Q6H PRN #4 tab 12/22/14 [Rx] ALPRAZolam [Xanax 0.5 MG Tablet] 0.5 mg PO BID 04/05/17 [History] Albuterol Sulfate [Albuterol Inhaler] 1 - 2 puff IH QID PRN 04/26/17 [History] Multivitamin [One Daily Essential] 1 tab PO DAILY 04/26/17 [History] Allergies/Adverse Reactions: 3 Allergy/AdvReac Type Severity Reaction Status Date / Time acetaminophen [From Percocet] AdvReac Nausea Verified 04/26/17 17:56 Oxycodone [From Percocet] AdvReac Nausea Verified 04/26/17 17:56 Procedures/tests Complete & Pending: Procedures Performed prior 72 hours Category Date Time Status CT head/brain wo con [CT] Stat Cat Scan 05/01/17 02:57 Completed CTA Head [CT angio head] [CT] Routine Cat Scan 05/02/17 14:49 Completed Date of admission: 04/26/17 18:11 Primary care physician: Colby Samuel DO Consults: 04/26/17 18:21 Consult to Nutrition [CONS] Routine Comment: Pt. prefers BOOST, NOT ENSURE Consulting Provider: NUTRITION Reason for Dietary Consult: PO Supplementation 04/27/17 03:37 Consult to Oncology [CONS] Stat Consulting Provider: Oncology [facility] Reason for Consult: Pancytopenia Call Completed: Yes 05/02/17 11:57 Consult to Neurology [CONS] Routine Consulting Provider: Neurology [facility] Reason for Consult: Migraine headaches; new onset Call Completed: Yes 05/02/17 15:23 Consult to Speech Therapy [CONS] Routine Comment: Evaluate, develop and implement POC Reason for Consult: dysphagia Call Completed: Yes - Patient Status Condition: Good - Discharge Instructions Follow Up With: Colby Samuel DO [Primary Care Provider] - 05/08/17 2:30 pm Hospital course: Ms. Dia is a 67 year old female - Time Spent with Patient Total time spent providing and/or coordinating discharge services: - Constitutional Vitals: Temp Pulse Resp BP Pulse Ox 98.4 F 57 18 95/59 97 05/03/17 11:40 05/03/17 11:40 05/03/17 11:40 05/03/17 11:40 05/03/17 11:40 General appearance: Present: cachectic, cooperative, A&O X 3, pleasant, no acute distress, underweight, answers questions appropriately
--- NOTE | 2017-05-03 15:46 | Internal Med Progress Note ---
Date of Encounter: 05/03/17 Time of Encounter: 11:30 - Assessment and plan (1) Acute exacerbation of chronic obstructive airways disease Current Visit: Yes Status: Acute Assessment and plan: Known history of COPD. Presented with increasing shortness of breath/dyspnea for 3 days. Sx's improved IV azithromycin, add ceftriaxone, steroids and breathing treatments. PCR, urinary antigens negative. Continue supplemental O2 PRN. Completed 5 day course of steroids, stop prednisone now. Continue IV ceftriaxone and azithromycin. (2) Influenza A Current Visit: Yes Status: Acute Assessment and plan: Resp PCR positive for influenza A. Completed 5 day course of Tamiflu (3) Leukopenia Current Visit: Yes Status: Acute Assessment and plan: WBC 0.7. Evaluated by Oncology who suspect secondary to viral illness. Cont to monitor. WBC 7.8 on 05/03 Qualifiers: Leukopenia type: neutropenia Neutropenia type: due to infection Qualified Code(s): D70.3 - Neutropenia due to infection (4) Conjunctivitis Current Visit: Yes Status: Acute Assessment and plan: suspect bacterial conjunctivitis with pink sclera, eyes matted shut. Cont erythromycin Qualifiers: Conjunctivitis type: acute Acute conjunctivitis type: bacterial Laterality: bilateral Qualified Code(s): H10.33 - Unspecified acute conjunctivitis, bilateral (5) Enlarged lymph node Current Visit: Yes Status: Acute Assessment and plan: enlarged bilateral submandibular lymph nodes. No other lymphadenopathy apparent on exam. Possibly secondary to influenza. Rapid strep negative. No recent feline contact, low suspicion for [place] fever. Patient endorses dysphagia and weight loss. Concerned for possible underlying malignancy. Peripheral blood smear shows thrombocytopenia and normal. Leukocytes and erythrocytes. Thrombocytopenia does not appear microangiopathic. Lymph node size decreased on 05/03 exam. Can follow-up with PCP outpatient (6) Thrombocytopenia Current Visit: Yes Status: Acute Assessment and plan: PLT 147 on admission and dropped to 79 on 05/02. No active bleeding. Peripheral blood smear with non-angiopathic thrombocytopenia. Platelets 159 on 05/03 (7) Headache Current Visit: Yes Status: Acute Assessment and plan: Complained of the worst headache of her life overnight on 04/30; known hx aneurysm. Head CT with evidence of left frontal craniotomy and aneurysm clipping; otherwise nonacute. No previous history of migraines. Headache relieved with Fioricet, worsened with Imitrex. Evaluated by neurology who suspected medication overuse headache or toxic headache related to underlying viral illness. Of note patient takes chronic opiates at home to treat daily headaches which could exacerbate further headaches. Recommended treatment is to decrease her completely discontinue opioid pain medication and symptomatically treat with NSAIDs however patient reluctant to stop home hydrocodone. Add PRN NSAID Qualifiers: Headache type: unspecified Headache chronicity pattern: acute headache Intractability: not intractable Qualified Code(s): R51 - Headache (8) Dysphagia Current Visit: Yes Status: Acute Assessment and plan: Patient reported difficulty swallowing at times. Underwent a modified barium swallow that showed small amount of laryngeal penetration with thin liquids, no evidence of aspiration. She was evaluated by ST who recommended nectar thick liquids. Patient is noncompliant with thickened liquids. Will ask ST to reevaluate 05/04 Qualifiers: Dysphagia type: pharyngeal phase Qualified Code(s): R13.13 - Dysphagia, pharyngeal phase (9) DVT prophylaxis Current Visit: Yes Status: Acute Assessment and plan: SCDs with thrombocytopenia - Subjective Interval history: Seen and examined at that time; still doesn't feel well but wants to go home. Had another headache last night in which blood pressure went up. Still awaiting GI consultation and further ST recommendations. Patient was placed on nectar thickened liquids yesterday and she has been noncompliant. Says she is not choking or gagging and does not like the thickened liquids. She is agreeable to stay overnight for GI consult and to see ST in the morning. - Constitutional Vitals: Temp Pulse Resp BP Pulse Ox 98.4 F 57 18 95/59 97 05/03/17 11:40 05/03/17 11:40 05/03/17 11:40 05/03/17 11:40 05/03/17 11:40 General appearance: Present: cachectic, cooperative, A&O X 3, pleasant, no acute distress, underweight, answers questions appropriately - Head Head exam: Present: atraumatic, normocephalic - Eye Eye exam: Present: PERRL, conjuntiva pink, sclera anicteric Pupils: Present: PERRL - Neck Neck exam general surgery: Present: supple, trachea midline. Absent: lymphadenopathy - Respiratory Respiratory exam: Present: CTAB. Absent: accessory muscle use, rales, rhonchi, wheezes - Cardiovascular Cardiovascular exam: Present: RRR, +S1, +S2. Absent: diastolic murmur, gallop, rubs, systolic murmur - GI/Abdominal GI/Abdominal exam: Present: normal bowel sounds, soft, no peritoneal signs. Absent: distended, tenderness - Extremities Exam Extremities exam: Present: warm, radial pulses palpable and symmetrical. Absent : calf tenderness, cyanotic, pedal edema - Neurological Exam Neurological exam: Present: CN II-XII intact, oriented X3, no focal deficits. Absent: pronater drift, facial droop, speech deficit - Skin Skin exam: Present: dry, intact Internal Medicine: Result - Labs CBC & Chem 7: 05/03/17 07:46 05/01/17 06:30 Labs: Short CBC 05/03/17 Range/Units 07:46 WBC 7.8 (4.3-11.1) K/mcL Hgb 13.1 (11.5-15.4) g/dL Hct 38.2 (35.3-44.9) % Plt Count 159 D (140-400) K/mcL - Impressions Impressions Head CTA 05/02/17 14:49 IMPRESSION: 1. No acute intracranial abnormality. 2. Changes of prior left pterional craniotomy and left parasellar aneurysm clipping with small chronic foci of encephalomalacia in the left frontal lobe. No residual left parasellar aneurysm filling. 3. Stable 2 mm aneurysms arising from the lateral aspect of the mid right posterior communicating artery and posteriorly from the junction of the right posterior communicating artery and the right posterior cerebral artery. 4. 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 5. Hypoplastic right and absent left anterior cerebral artery A1 segments. Prominent right lenticulostriate arteries are consistent with moyamoya disease, which may be secondary to right internal carotid artery occlusion, and may partially supply the anterior and right middle cerebral arteries. D/ / Darren Sweeney / Darren Sweeney Interpreting Provider: Darren Sweeney Consult Discharge Plan - Plan Referrals: Colby Samuel DO [Primary Care Provider] - 05/08/17 2:30 pm
--- NOTE | 2017-05-03 16:40 | Neurology Progress Note ---
Date of Encounter: 05/03/17 Time of Encounter: 16:38 Assessment and Plan (1) Headache Current Visit: Yes Status: Acute I suspect that the acute headache syndrome that she experienced was due to the underlying viral syndrome. Her headaches have improved. I do not feel that we are dealing with meningitis or any underlying central nervous system infectious process. I simply feel that the headaches were associated with the underlying infection i.e. toxic headache. The CTA revealed the 2 remaining aneurysms small and stable. They are at low risk for rupture. Her neurologic examination is normal. I believe that the chronic daily headaches that she experiences may be due to analgesic rebound. She takes Vicodin for other pain syndromes. This may be exacerbating her headaches. From a neurologic perspective however this can be managed on an outpatient basis. Otherwise I will reevaluate her at your request. Qualifiers: Headache type: unspecified Headache chronicity pattern: acute headache Intractability: not intractable Qualified Code(s): R51 - Headache Subjective Interval history: I had the pleasure of following up with Mily Dia today regarding headaches. She informed me that she has low-grade headaches frequently however is the more intense headaches that she had recently associated with this viral syndrome that she has been concerned about. She is better today and feels that her headache is about 5 on a scale of 10, which is generally which she experiences. She has never been diagnosed with migraine headaches. However she is afraid that she might experience another intense headache such as this. CTA scan of the head was obtained and does reveal the small 2 mm aneurysms one located on the lateral right posterior communicating artery and another at the junction of the right posterior communicating artery and the right posterior cerebral artery. These aneurysms are unchanged from prior study completed in 2013. She has no nuchal rigidity. She is not febrile. She is alert and oriented and able to give a very lucid history. Objective - Constitutional Vitals: Temp Pulse Resp BP Pulse Ox 98.0 F 67 16 107/61 94 05/03/17 15:58 05/03/17 15:58 05/03/17 15:58 05/03/17 15:58 05/03/17 15:58 - Neurological Exam Sensorimotor examination: Present: intact Motor Examination: Present: full strength in all major muscle groups Motor examination - right side: 5/5: deltoids, biceps, triceps, wrist flexion, wrist extension, naturalist, hip flexors, tibialis Anterior, quadriceps, toe extension (EHL), plantarflexion Motor examination - left side: 08/09: deltoids, biceps, triceps, wrist flexion, wrist extension, hip flexors, naturalist, quadriceps, tibialis Anterior, toe extension (EHL), plantarflexion Sensation intact: Present: intact, light touch Reflexes: Biceps: 1+, Triceps: 1+, Brachioradialis: 1+, Patella: 1+, Achilles: 1 + Mental Status Examination: Present: awake, alert, oriented to person, oriented to place, oriented to time, follows commands appropriately, answers questions appropriately, no agnosia, no aphasia, no aproxia Cranial nerve examination: Present: PERRL, EOMI, visual champagne intact, corneal reflexes brisk symmetrically, sensory to face intact, mastication intact, no facial asymmetry is present, no dysarthria, hearing is intact symmetrically, soft palate elevates bilaterally upon phonation, gag reflex intact, flexes SCM and trapezius muscles symmetrically with full power, tongue protrudes midline, no atrophy or facial fasiculations present Cerebellar examination: Present: no dysmetria, performs finger to nose and heel to valdovinos symmetrically without ataxia, no gait ataxia, no truncal ataxia, no difficulty with rapid alternating movements Results - Laboratory Findings CBC and BMP: 05/03/17 07:46 05/01/17 06:30 Abnormal lab findings: Abnormal lab results Nucleated RBCs/100 WBC 0.4 /100 WBC (0) H 05/01/17 06:30 Platelet Estimate Decreased (Normal) L 05/01/17 06:30 Immature Plt Fraction 13.5 % (1.1-6.1) H 05/02/17 06:17 Carbon Dioxide 31 mEq/L (23-29) H 05/01/17 06:30 Creatinine 0.58 mg/dL (0.60-1.20) L 05/01/17 06:30 Hemoglobin A1c 5.7 % (-5.6) H 04/27/17 01:50 Calcium 8.5 mg/dL (8.6-10.3) L 05/01/17 06:30 Magnesium 1.4 mg/dL (1.6-2.6) L 04/27/17 01:50 Serum Total Protein 5.6 g/dL (6.4-8.9) L 05/01/17 06:30 Albumin 3.4 g/dL (3.5-5.7) L 05/01/17 06:30 Globulin 2.2 g/dL (2.4-3.5) L 05/01/17 06:30 Urine Clarity Cloudy (Clear) A 04/26/17 13:00 Ur Specific [place] > 1.030 (1.010-1.025) H 04/26/17 13:00 Urine Protein 30 mg/dL (Neg-Trace) H 04/26/17 13:00 Urine Ketones Trace mg/dL (Negative) H 04/26/17 13:00 Urine Bilirubin Small (Negative) H 04/26/17 13:00 Urine Microscopic WBC 5-15 per hpf (0-3) H 04/26/17 13:00 Ur Squamous Epith Cells Many per lpf (None-Few) H 04/26/17 13:00 Consult Discharge Plan - Plan Referrals: Colby Samuel DO [Primary Care Provider] - 05/08/17 2:30 pm
[2017-05-03] MEDS: cefTRIAXone 1,000 MG in Water for inj. (sterile) 10 ML IVPB SCH (18:23)
[2017-05-03] MEDS: Azithromycin 250 MG TABLET PO SCH (18:23)
[2017-05-04] MEDS: Ipratropium/Albuterol Neb 3 ML IH SCH ×2 (03:36→11:05)
[2017-05-04] MEDS: *HR* HYDROcodone/Acet 5/325 mg TABLET PO PRN ×2 (04:22→11:01)
[2017-05-04 04:55] LABS: Hematocrit 36.2 % (35.3-44.9); Hemoglobin 12.5 g/dL (11.5-15.4); Mean Corpuscular HGB Conc 34.5 g/dL (31.6-35.5); Mean Corpuscular Hemoglobin 31.8 pg (28.0-33.3); Mean Corpuscular Volume 92.1 fL (83.0-100.0); Mean Platelet Volume 11.3 fL (9.4-12.4); Platelet Count 173 K/mcL (140-400); Red Blood Count 3.93 M/mcL (3.82-4.97); Red Cell Distribution Width 12.3 % (11.5-14.5)
[2017-05-04] MEDS: ALPRAZolam 0.5 MG TABLET PO SCH (08:46)
[2017-05-04] MEDS: Multivit/Ca/Min/Fe/FA 1 TAB TABLET PO SCH (08:46)
[2017-05-04] MEDS: Cholecalciferol (D-3) 1,000 UNIT TABLET PO SCH (08:46)
[2017-05-04] MEDS: Aspirin Enteric Coated 81 MG Tablet PO SCH (08:46)
[2017-05-04] MEDS: Erythromycin OPTH Oint BOTH EYES SCH (08:47)
--- NOTE | 2017-05-04 09:56 | Discharge Summary ---
Date of Encounter: 05/04/17 Time of Encounter: 09:43 - Discharge Diagnosis (1) Acute exacerbation of chronic obstructive airways disease Priority: Secondary Status: Chronic Comments: Known history of COPD. with chronic respiratory failure, on home O2. Presented with increasing shortness of breath/dyspnea for [address] with emphysema and chronic bronchitis, otherwise nonacute. Sx's improved IV azithromycin, ceftriaxone, steroids and breathing treatments. Resp PCR, urinary antigens negative. Completed 5 day course of azithromycin, ceftriaxone and steroids. Adequately oxygenating on home dose of oxygen at time of discharge. Recommend follow-up with PCP within one week (2) Influenza A Priority: Primary Status: Resolved Comments: Resp PCR positive for influenza A. Completed 5 day course of Tamiflu (3) Leukopenia Priority: Primary Status: Resolved Comments: WBC 0.7. Evaluated by Oncology who suspect secondary to viral illness. WBC 9.5 at time of discharge. Qualifiers: Leukopenia type: neutropenia Neutropenia type: due to infection Qualified Code(s): D70.3 - Neutropenia due to infection (4) Conjunctivitis Priority: Primary Status: Acute Comments: suspect bacterial conjunctivitis with pink sclera, eyes matted shut. No obvious trauma or injury. No double vision, no eye pain. Minimal improvement with erythromycin ointment. Changed to Cipro eyedrops at discharge. Advised to follow-up with ophthalmology 1 day after discharge if no improvement ( referral made to ophthalmology). Qualifiers: Conjunctivitis type: acute Acute conjunctivitis type: bacterial Laterality: bilateral Qualified Code(s): H10.33 - Unspecified acute conjunctivitis, bilateral (5) Enlarged lymph node Priority: Primary Status: Acute Comments: enlarged bilateral submandibular lymph nodes. No other lymphadenopathy apparent on exam. Possibly secondary to influenza. Rapid strep negative. No recent feline contact, low suspicion for Scr[place] fever. Patient endorses dysphagia and weight loss. Peripheral blood smear showed thrombocytopenia and normal leukocytes and erythrocytes. Thrombocytopenia did not appear microangiopathic. Lymph node size decreased at time of discharge. Recommend follow-up with PCP within one week. (6) Thrombocytopenia Priority: Primary Status: Acute Comments: PLT 147 on admission and dropped to 79. No active bleeding. Peripheral blood smear with non-angiopathic thrombocytopenia. Platelets 173 at time of discharge. (7) Headache Priority: Secondary Status: Chronic Comments: Complained of the worst headache of her life overnight on 1/24; known hx aneurysm. Head CT with evidence of left frontal craniotomy and aneurysm clipping; otherwise nonacute. No previous history of migraines. Headache relieved with Fioricet. Evaluated by neurology who suspected medication overuse headache or toxic headache related to underlying viral illness. Of note patient takes chronic opiates at home to treat daily headaches which could exacerbate further headaches. Recommended treatment is to decrease or completely discontinue opioid pain medication and symptomatically treat with NSAIDs however patient does not want to stop home hydrocodone. Suspect anxiety Discharge home with PRN Imitrex. Recommend follow-up with PCP within one week Qualifiers: Headache type: unspecified Headache chronicity pattern: acute headache Intractability: not intractable Qualified Code(s): R51 - Headache (8) Dysphagia Priority: Primary Status: Acute Comments: patient reported difficulty swallowing at times. Underwent a modified barium swallow that showed small amount of laryngeal penetration with thin liquids, no evidence of aspiration. She was evaluated by ST who recommended nectar thick liquids. She noncompliant with thickened liquids; explained to her at length and stressed the importance of adhering to nectar thickened liquids due to risk of aspiration (advised patient to aspiration can lead to an ammonia which could lead to sepsis, further morbidity including a resp failure immortality). Evalauted by GI who recommended inpatient EGD, colonoscopy and also discussed the possibility of needing a PEG tube however patient declined any further workup or treatment at this time. Alert and oriented, has decision-making capacity. Verbalizes understanding. Says she will follow up with GI in 1-2 weeks as recommended. Discharge home on nectar thickened liquids although she will likely be noncompliant Qualifiers: Dysphagia type: pharyngeal phase Qualified Code(s): R13.13 - Dysphagia, pharyngeal phase (9) Anxiety Priority: Secondary Status: Chronic Comments: per hx. on Xanax at home. Suspect anxiety greatly contributing to headaches. She may benefit from an additional anti-anxiety medication and /or SSRI. Continue home medication regimen. Recommend follow-up with PCP for medication review was in 1 week - Discharge Medications Prescriptions: Ciprofloxacin OPTH Soln [Ciloxan OPTH Soln] 2 drop BOTH EYES Q6HR #1 bottle SUMAtriptan succinate [Imitrex] 50 mg PO Q2H PRN #7 tablet PRN Reason: Headache Home Medications: Aspirin Enteric Coated [Aspirin EC] 81 mg PO DAILY 12/22/14 [History] Cholecalciferol (Vitamin D3) [Vitamin D] 1,000 unit PO DAILY 12/22/14 [History] Hydrocodone/Acetaminophen [[place] 5-325 Tablet] 1 tab PO Q6H PRN #4 tab 12/22/14 [Rx] ALPRAZolam [Xanax 0.5 MG Tablet] 0.5 mg PO BID 04/05/17 [History] Albuterol Sulfate [Albuterol Inhaler] 1 - 2 puff IH QID PRN 04/26/17 [History] Multivitamin [One Daily Essential] 1 tab PO DAILY 04/26/17 [History] Ciprofloxacin OPTH Soln [Ciloxan OPTH Soln] 2 drop BOTH EYES Q6HR #1 bottle [Rx] SUMAtriptan succinate [Imitrex] 50 mg PO Q2H PRN #7 tablet 05/04/17 [Rx] Allergies/Adverse Reactions: 3 Allergy/AdvReac Type Severity Reaction Status Date / Time acetaminophen [From Percocet] AdvReac Nausea Verified 04/26/17 17:56 Oxycodone [From Percocet] AdvReac Nausea Verified 04/26/17 17:56 Procedures/tests Complete & Pending: Procedures Performed prior 72 hours Category Date Time Status CTA Head [CT angio head] [CT] Routine Cat Scan 05/02/17 14:49 Completed Date of admission: 04/26/17 18:11 Primary care physician: Colby Samuel DO Consults: 04/26/17 18:21 Consult to Nutrition [CONS] Routine Comment: Pt. prefers BOOST, NOT ENSURE Consulting Provider: NUTRITION Reason for Dietary Consult: PO Supplementation 04/27/17 03:37 Consult to Oncology [CONS] Stat Consulting Provider: Oncology [facility] Reason for Consult: Pancytopenia Call Completed: Yes 05/02/17 11:57 Consult to Neurology [CONS] Routine Consulting Provider: Neurology [facility] Reason for Consult: Migraine headaches; new onset Call Completed: Yes 05/02/17 15:23 Consult to Speech Therapy [CONS] Routine Comment: Evaluate, develop and implement POC Reason for Consult: dysphagia Call Completed: Yes Discharging clinician: Kasia Lan Anticipated date of discharge: 05/04/17 - Patient Status Disposition: Home Health Service Condition: Good Functional capacity at discharge: uses cane/walker Overall status at discharge: patient is progressing back to baseline - Discharge Instructions Instructions: Tension Headache (DC), Sumatriptan (By mouth), Ciprofloxacin ( Into the eye), Anxiety (DC), Modified Barium Swallow (DC), Upper Gastrointestinal Endoscopy (DC), Colonoscopy (DC) Follow Up With: Colby Samuel DO [Primary Care Provider] - 05/08/17 2:30 pm Ben Field DO [Non-Partnered Physician] - (Please call to make an appointment within 1-3 days if no improvement in right eye conjunctivitis) Dank Floyd MD [Partnered Physician] - (Please call and make an appointment within 1-2 weeks if you have not heard from the office) - Diet and Activity Activity: as per physical therapy, increase activity as tolerated, wear oxygen at night Diet: advance to your usual diet, other (nectar thick liquids) Interval History: Seen and examined at bedside, still with multiple complaints including headache , anxiety, right eye pain however states she wants to go home today. Spent approximately 35 minutes discussing EGD and colonoscopy with patient and significant other and she is declining. Patient states she is too weak to undergo bowel prep. She would like to go home and increase oral intake, gained some strength and follow-up with GI in 1-2 weeks. Significant other at bedside and updated. Patient initially declined home health therapy but now is requesting. Will make referral to [facility] per patient request Hospital course: See assessment and plan for hospital course - Time Spent with Patient Total time spent providing and/or coordinating discharge services: Greater than 30 minutes (Spent approx 1 hour on discharge) - Constitutional Vitals: Temp Pulse Resp BP Pulse Ox 98.3 F 53 15 94/56 94 05/04/17 06:51 05/04/17 06:51 05/04/17 06:51 05/04/17 06:51 05/04/17 06:51 General appearance: Present: cachectic, cooperative, A&O X 3, pleasant, no acute distress, underweight, answers questions appropriately - Head Head exam: Present: atraumatic, normocephalic - Eye Eye exam: Present: PERRL, conjuntiva pink, sclera anicteric Pupils: Present: PERRL - Neck Neck exam general surgery: Present: lymphadenopathy (Enlarged submandibular lymph nodes, right greater than left decreased from yesterday's exam), supple, trachea midline - Respiratory Respiratory exam: Present: CTAB. Absent: accessory muscle use, rales, rhonchi, wheezes - Cardiovascular Cardiovascular exam: Present: RRR, +S1, +S2. Absent: diastolic murmur, gallop, rubs, systolic murmur - GI/Abdominal GI/Abdominal exam: Present: normal bowel sounds, soft, no peritoneal signs. Absent: distended, tenderness - Extremities Exam Extremities exam: Present: warm, radial pulses palpable and symmetrical. Absent : calf tenderness, cyanotic, pedal edema - Neurological Exam Neurological exam: Present: CN II-XII intact, oriented X3, no focal deficits. Absent: pronater drift, facial droop, speech deficit - Psychiatric Psychiatric exam: Present: anxious - Skin Skin exam: Present: dry, intact
--- NOTE | 2017-05-04 11:03 | Physician Discharge Referral ---
Home Health/Hosp Referral Info Transfer to: Home Health Attending Provider: Kasia Lan CNP Provider in Charge Post Discharge: PCP - Diagnosis (1) Acute exacerbation of chronic obstructive airways disease Status: Chronic (2) Influenza A Status: Resolved (3) Leukopenia Status: Resolved (4) Conjunctivitis Status: Acute (5) Enlarged lymph node Status: Acute (6) Thrombocytopenia Status: Acute (7) Headache Status: Chronic (8) Dysphagia Status: Acute (9) Anxiety Status: Chronic - Respiratory Orders Oxygen / L per min (2) Smoking Cessation: Smoking cessation has been advised. For more information, call the [place] Tobacco Quit Line at 0-627-KRVC-NOW. - Diet/Nutrition Diet/Nutrition: List: [place] thick liquids - Activity Activity Orders: Ambulate, Walker - Services Needed Following services are medically necessary services: Nursing, Home Health Aide, Physical Therapy, Occupational Therapy, Speech Therapy - Transfer Medications Prescriptions: Ciprofloxacin OPTH Soln [Ciloxan OPTH Soln] 2 drop BOTH EYES Q6HR #1 bottle SUMAtriptan succinate [Imitrex] 50 mg PO Q2H PRN #7 tablet PRN Reason: Headache Home Medications: Aspirin Enteric Coated [Aspirin EC] 81 mg PO DAILY 12/22/14 [History] Cholecalciferol (Vitamin D3) [Vitamin D] 1,000 unit PO DAILY 12/22/14 [History] Hydrocodone/Acetaminophen [[place] 5-325 Tablet] 1 tab PO Q6H PRN #4 tab 12/22/14 [Rx] ALPRAZolam [Xanax 0.5 MG Tablet] 0.5 mg PO BID 04/05/17 [History] Albuterol Sulfate [Albuterol Inhaler] 1 - 2 puff IH QID PRN 04/26/17 [History] Multivitamin [One Daily Essential] 1 tab PO DAILY 04/26/17 [History] Ciprofloxacin OPTH Soln [Ciloxan OPTH Soln] 2 drop BOTH EYES Q6HR #1 bottle [Rx] SUMAtriptan succinate [Imitrex] 50 mg PO Q2H PRN #7 tablet 05/04/17 [Rx] Allergies/Adverse Reactions: 3 Allergy/AdvReac Type Severity Reaction Status Date / Time acetaminophen [From Percocet] AdvReac Nausea Verified 04/26/17 17:56 Oxycodone [From Percocet] AdvReac Nausea Verified 04/26/17 17:56 Certification: Further, I certify that my clinical findings support that this patient is homebound (i.e. absences from home require considerable and taxing effort and are for medical reasons or restoration services or infrequently or short duration when for other reasons) because: Homebound Reason: Patient requires assistance of a person or device to safely leave home Attestation: My signature below is to certify that this patient is under my care and that I, or nurse practitioner, or a physician's miller head assistant wet process working with me, has a face-to -face encounter with this patient.
--- NOTE | 2017-05-04 11:07 | Gastroenterology Progress Note ---
Date of Encounter: 05/04/17 Time of Encounter: 10:00 - Time Spent With Patient Total time spent is greater than 50% in coordination of care (as documented) at patient's floor/unit and/or counseling patient: - Subjective Interval history: I had the pleasure of following up with Mily Dia today regarding headaches. She informed me that she has low-grade headaches frequently however is the more intense headaches that she had recently associated with this viral syndrome that she has been concerned about. She is better today and feels that her headache is about 5 on a scale of 10, which is generally which she experiences. She has never been diagnosed with migraine headaches. However she is afraid that she might experience another intense headache such as this. CTA scan of the head was obtained and does reveal the small 2 mm aneurysms one located on the lateral right posterior communicating artery and another at the junction of the right posterior communicating artery and the right posterior cerebral artery. These aneurysms are unchanged from prior study completed in 2013. She has no nuchal rigidity. She is not febrile. She is alert and oriented and able to give a very lucid history. Ms. Dia and me along with Jessica Lan, ANP had a very candid discussion about her present clinical status. She failed the modified barium swallow study yesterday and was recommended to be on thickened liquids. There is also an issue of compliance here.. Bilirubin and I discussed with her that she essentially lost a very significant amount of weight (108 down to about 90 pounds on admission) she needs something done which includes endoscopy to rule out her possible malignancy etc since she is not having any endoscopy done in quite sometime.She has no diarrhea. Her significant other Liam was present at the bedside and said that she does take in than 1000 brandi a day.. at home. Also the patient was recently admitted with the Flu and COPD exacerbation. . I recommend the patient stay back at the hospital and undergo an upper and lower endoscopy as she has not had it done in the past to the best of our knowledge. We would have to give NuLytely via nasogastric tube since she aspirates. And then go from there. We will also discussed placement of a percutaneous endoscopic gastrostomy tube which could be the temporary till she builds up and could always was removed if needed . The patient apparently initially agreed but then refused to stay back, at the hospital amount to go home. Liam did not agree with her but, patient seems adamant about going home also clearly told her that it would p.m. she would not not do well at home because of her poor intake and that she would continue unfortunately to lose more weight. Not sure she is going to comply with thickened liquids. The patient is basically going against our advice and going home. - Constitutional Vitals: Temp Pulse Resp BP Pulse Ox 98.3 F 53 15 94/56 94 05/04/17 06:51 05/04/17 06:51 05/04/17 06:51 05/04/17 06:51 05/04/17 06:51 Results - Labs CBC & Chem 7: 05/04/17 04:18 05/01/17 06:30 Labs: Last Result Calcium 8.5 mg/dL (8.6-10.3) L 05/01/17 06:30 Troponin I < 0.03 ng/mL (< 0.04) 04/27/17 01:50 Triglycerides 67 mg/dL (< 150) 04/27/17 01:50 Entire Visit Hgb 12.5 g/dL (11.5-15.4) 05/04/17 04:18 Hct 36.2 % (35.3-44.9) 05/04/17 04:18 Total Bilirubin 0.3 mg/dL (0.3-1.0) 05/01/17 06:30 AST 28 Units/L (13-39) 05/01/17 06:30 ALT 30 Units/L (7-52) 05/01/17 06:30 Consult Discharge Plan - Plan Instructions: Ciprofloxacin (Into the eye), Sumatriptan (By mouth), Tension Headache (DC), Modified Barium Swallow (DC), Anxiety (DC) Referrals: Dank Floyd MD [Partnered Physician] - (Please call and make an appointment within 1-2 weeks if you have not heard from the office) Ben Field DO [Non-Partnered Physician] - (Please call to make an appointment within 1-3 days if no improvement in right eye conjunctivitis) Colby Samuel DO [Primary Care Provider] - 05/08/17 2:30 pm Prescriptions: Ciprofloxacin OPTH Soln [Ciloxan OPTH Soln] 2 drop BOTH EYES Q6HR #1 bottle SUMAtriptan succinate [Imitrex] 50 mg PO Q2H PRN #7 tablet PRN Reason: Headache
[2017-05-04 11:12] VITALS: BP 111/70
== END 2017-05-04 12:23 | disposition home health service (06) | DRG 194 ==
LOC: EMEROO 11:40 → 3BNU 11:40
PROVIDERS: ADMIT Hospitalist; ATTEND Registered Nurse